=== PATIENT | female | born 1935 | race Caucasian/White ===

== ENCOUNTER → 2016-03-22 | Outpatient (CLI) | payer MEDICARE, BC ==
[~2016-03-22] MED LIST: ALLE60TA PO; AMOX500T PO; ASPI1TAB69 PO; ASPI81TA82 PO; CARD240C6 PO; COZA25TA PO; DILT31TA PO; EZET10 PO; EZET1TAB8 PO; FAMO1TAB37 PO; FLUT50SP EACH NARE; GABA300C3 PO; GABA300C5 PO; GLUC500C3 PO; LEVO75TA3 PO; LEVO75TA42 PO; MAGN400T PO; MELO1POW14; OYST500T77 PO; REST0.05 EACH EYE; TAB-TAB PO; VITA10002 PO; VITA400D PO; VITA500T10 PO
[2016-03-22 13:34] LABS: BASOPHIL # 0.1 TH/MM3 (0-0.2); BASOPHIL % 1.9 % (0.0-2.0); EOSINOPHIL # 0.3 TH/MM3 (0-0.4); EOSINOPHIL % 5.3 % (0.0-4.0); HEMATOCRIT 40.2 % (35.0-46.0); HEMO FLAGS DIFF FINAL; LYMPH % 25.1 % (9.0-44.0); LYMPHOCYTE # 1.3 TH/MM3 (1.0-4.8); MEAN CELL VOLUME 94.9 FL (80.0-100.0); MEAN CORPUSCULAR HEMOGLOBIN 32.8 PG (27.0-34.0); MEAN CORPUSCULAR HGB CONC 34.5 % (32.0-36.0); MONO % 10.5 % (0.0-8.0); NEUT % 57.2 % (16.0-70.0); PLATELET COUNT 205 TH/MM3 (150-450); RED BLOOD COUNT 4.23 MIL/MM3 (4.00-5.30); RED CELL DISTRIBUTION WIDTH 13.2 % (11.6-17.2); WHITE BLOOD COUNT 5.3 TH/MM3 (4.0-11.0)
[2016-03-22 14:05] LABS: ANION GAP 7 MEQ/L (5-15); AST (GOT) 14 U/L (15-37); BICARBONATE 25.8 MEQ/L (21.0-32.0); BLOOD UREA NITROGEN 17 MG/DL (7-18); CHLORIDE 109 MEQ/L (98-107); GLOMERULAR FILTRATION RATE 66 ML/MIN (>89); POTASSIUM 4.2 MEQ/L (3.5-5.1); SODIUM (NA) 142 MEQ/L (136-145)
[2016-03-22 14:24] LABS: ALKALINE PHOSPHATASE 82 U/L (45-117); ALT (GPT) 20 U/L (10-53); FREE T4 1.12 NG/DL (0.76-1.46); GLUCOSE,FASTING 105 MG/DL (74-99); HDL CHOLESTEROL 72.1 MG/DL (40.0-60.0); LDL CHOLESTEROL 103 MG/DL (0-99); TOTAL BILIRUBIN ADULT 0.5 MG/DL (0.2-1.0)
== END ==
LOC: PLAB 08:29
PROVIDERS: ATTEND Internal Medicine Interventional Cardiology
DX: I11.9 Hypertensive heart disease without heart failure (principal); E03.9 Hypothyroidism, unspecified; I10 Essential (primary) hypertension; E78.4 Other hyperlipidemia; R00.2 Palpitations; R07.89 Other chest pain; R00.0 Tachycardia, unspecified
CPT/HCPCS: 36415; 80053; 80061; 84439; 84443; 85025

== ENCOUNTER 2016-06-15 08:35 | Inpatient (IN) | payer MEDICARE, BC ==
[~2016-06-15] VITALS: Ht 165.1 cm; Wt 87.5 kg
[2016-06-15] VITALS (11 sets, daily range): BP systolic 141–173; BP diastolic 65–79; PULSE 40–80; RESP 18; TEMP 97–98.5; O2SAT 93–99
[~2016-06-15 08:35] MED LIST changes: -ALLE60TA PO; -ASPI1TAB69 PO; -COZA25TA PO; -DILT31TA PO; -EZET1TAB8 PO; -FAMO1TAB37 PO; -FLUT50SP EACH NARE; -GABA300C5 PO; -LEVO75TA3 PO; -MELO1POW14; -REST0.05 EACH EYE
[2016-06-15] MEDS ORDERED: SODIUM CHLORIDE 0.9% FLUSH 10 ML FLUSH IVF PRN (08:45)
[2016-06-15] MEDS ORDERED: DILT31TA PO (09:10)
[2016-06-15] MEDS ORDERED: EZET1TAB8 PO (09:10)
[2016-06-15] MEDS ORDERED: LEVO75TA3 PO (09:10)
[2016-06-15] MEDS ORDERED: REST0.05 EACH EYE (09:10)
--- NOTE | 2016-06-15 09:13 | RADRPT ---
EXAM DATE/TIME: 06/15/2016 09:10 [place] COMPARISON: CHEST SINGLE AP, June 21, 2013, 1:21. INDICATIONS : Irregular heart rate MEDICAL HISTORY : None. SURGICAL HISTORY : None. ENCOUNTER: Initial ACUITY: 1 day PAIN SCORE: 0/10 LOCATION: Bilateral chest FINDINGS: A single view of the chest demonstrates the lungs to be symmetrically aerated without evidence of mas s, infiltrate or effusion. A calcified granuloma is again noted in the left upper lobe. Mild atherosc lerotic calcifications are present in the aorta. The cardiomediastinal contours are unremarkable. Os seous structures are intact. CONCLUSION: No acute disease. Greg Law MD on June 15, 2016 at 9:10 Board Certified Radiologist. This report was verified electronically.
[2016-06-15 09:39] LABS: AUTOMATED NEUTROPHIL # 3.9 TH/MM3 (1.8-7.7); BASOPHIL # 0.1 TH/MM3 (0-0.2); EOSINOPHIL # 0.2 TH/MM3 (0-0.4); EOSINOPHIL % 3.1 % (0.0-4.0); HEMATOCRIT 39.1 % (35.0-46.0); HEMO FLAGS DIFF FINAL; LYMPH % 20.7 % (9.0-44.0); LYMPHOCYTE # 1.2 TH/MM3 (1.0-4.8); MONO % 8.9 % (0.0-8.0); NEUT % 65.3 % (16.0-70.0); PLATELET COUNT 187 TH/MM3 (150-450); RED BLOOD COUNT 4.16 MIL/MM3 (4.00-5.30); RED CELL DISTRIBUTION WIDTH 13.2 % (11.6-17.2)
[2016-06-15 09:49] LABS: APTT (PATIENT) 27.8 SEC (24.3-30.1); PROTHROMBIN TIME - PATIENT 10.5 SEC (9.8-11.6)
[2016-06-15 09:56] LABS: ANION GAP 10 MEQ/L (5-15); AST (GOT) 18 U/L (15-37); BICARBONATE 24.1 MEQ/L (21.0-32.0); BLOOD UREA NITROGEN 13 MG/DL (7-18); CHLORIDE 109 MEQ/L (98-107); GLOMERULAR FILTRATION RATE 60 ML/MIN (>89); POTASSIUM 3.7 MEQ/L (3.5-5.1); SODIUM (NA) 143 MEQ/L (136-145)
[2016-06-15 10:01] LABS: ALKALINE PHOSPHATASE 90 U/L (45-117); ALT (GPT) 20 U/L (10-53); CREATINE KINASE 65 U/L (26-192); TOTAL BILIRUBIN ADULT 0.4 MG/DL (0.2-1.0)
[2016-06-15] MEDS ORDERED: GABA300C5 PO (10:30)
[2016-06-15] MEDS ORDERED: MELO1POW14 (10:30)
--- NOTE | 2016-06-15 10:33 | PD ---
HPI Chief Complaint: Cardiac Complaint Time Seen by Provider: 09:00 Travel History International Travel<30 days: No Contact w/Intl Traveler<30days: No Traveled to known affect area: No History of Present Illness HPI Patient 81-year-old female who presents emergency Department with some chest discomfort as well as palpitations since this morning. Patient states she's been taking her medications as prescribed including Cardizem. She states on arrival her symptoms have subsided. She denies any chest pain just states it was a very funny feeling in the middle of my chest without radiation. Denies any shortness of breath or abdominal pain. EMS noted that her heart rate was bradycardic in the high 30s to low 40s range. Her blood pressures for. Patient has no further complaints this time. She did feel fatigued and dizzy this morning and felt like she was going to pass out. PFSH Past Medical History Hx Anticoagulant Therapy: Yes (ASPRIN ) Arthritis: Yes Blood Disorders: No Heart Rhythm Problems: Yes Cancer: No Cardiovascular Problems: Yes High Cholesterol: Yes Diminished Hearing: No Deep Vein Thrombosis: Yes (STOPPED XARELTO 06/10/14) Endocrine: Yes Gastrointestinal Disorders: Yes Genitourinary: No Headaches: Yes Hypertension: Yes Immune Disorder: No Implanted Vascular Access Dvce: Yes Kidney Stones: Yes Musculoskeletal: Yes Neurologic: Yes Psychiatric: No Reproductive: No Respiratory: No Thyroid Disease: Yes Ulcer: Yes Menopausal: Yes Past Surgical History Abdominal Surgery: Yes (KIERRA) Body Medical Devices: AUREA EYE LENS Cholecystectomy: Yes Eye Surgery: Yes (AUREA CATARACT SX) Other Surgery: Yes (HERINIA AND HIP REPLACEMENT, LEG ) Social History Alcohol Use: Yes (OCC) Tobacco Use: No Substance Use: No Allergies-Medications (Allergen,Severity, Reaction): Coded Allergies: Amoxicillin (Verified Adverse Reaction, Severe, Nausea/Vomiting, 06/15/16) . Celebrex (Verified Adverse Reaction, Severe, N&V, 06/15/16) . Cephalexin (Verified Adverse Reaction, Severe, N&V, 06/15/16) Colestid (Verified Adverse Reaction, Severe, N&V, 06/15/16) Flagyl (Verified Adverse Reaction, Severe, N&V, 06/15/16) Levaquin (Verified Adverse Reaction, Severe, N&V, 06/15/16) Lotrimin (Verified Adverse Reaction, Severe, N&V, 06/15/16) Nystatin (Verified Adverse Reaction, Severe, N&V, 06/15/16) Penicillin (Verified Adverse Reaction, Severe, Nausea/Vomiting, 06/15/16) Pravachol (Verified Adverse Reaction, Severe, N&V, 06/15/16) Tenoretic-100 (Verified Adverse Reaction, Severe, N&V, 06/15/16) Toprol Xl (Verified Adverse Reaction, Severe, N&V, 06/15/16) Vicodin (Verified Adverse Reaction, Severe, N&V, 06/15/16) Wellbutrin (Verified Adverse Reaction, Severe, N&V, 06/15/16) Uncoded Allergies: CEPHALEXIN (Allergy, Severe, DIAPHORETIC ;VERY WEAK LEGS; NAUSEA; DIARRHEA , 06/12/14) . STATINS (Allergy, Severe, MUSCLE PAIN, 06/12/14) . Reported Meds & Prescriptions Reported Meds & Active Scripts Active Reported Aspirin 81 Mg Tabdr 81 Mg PO DAILY Stacey Allergy (Fexofenadine HCl) Unknown Strength Tab Unknown Dose PO BID Pepcid (Famotidine) Unknown Strength Tab Unknown Dose PO BID Meloxicam (Meloxicam (Bulk)) 1 Pow Pow Gabapentin 300 Mg Cap 300 Mg PO TID Restasis Opth Drops (Cyclosporine Opth Drops) 0.05% Emul 1 Drop EACH EYE DAILY Cardizem (Diltiazem HCl) 30 Mg Tab 240 Mg PO DAILY Levothyroxine (Levothyroxine Sodium) 75 Mcg Tab 75 Mcg PO DAILY Ezetimibe 10 Mg Tab 10 Mg PO DAILY Review of Systems Except as stated in HPI: all other systems reviewed are Neg Physical Exam Narrative GENERAL: Well-developed well-nourished no apparent distress SKIN: Focused skin assessment warm/dry. HEAD: Atraumatic. Normocephalic. EYES: Pupils equal and round. No scleral icterus. No injection or drainage. ENT: No nasal bleeding or discharge. Mucous membranes pink and moist. NECK: Trachea midline. No JVD. CARDIOVASCULAR: Regular rhythm with bradycardia. No murmur appreciated. 2+ bilateral equal pulses in all 4 extremities, RESPIRATORY: No accessory muscle use. Clear to auscultation. Breath sounds equal bilaterally. GASTROINTESTINAL: Abdomen soft, non-tender, nondistended. Hepatic and splenic margins not palpable. MUSCULOSKELETAL: No obvious deformities. No clubbing. No cyanosis. No edema. NEUROLOGICAL: Awake and alert and oriented 3. No obvious cranial nerve deficits. Motor grossly within normal limits. Normal speech. PSYCHIATRIC: Appropriate mood and affect; insight and judgment normal. Data Data Last Documented VS Vital Signs Date Time Temp Pulse Resp B/P Pulse Ox O2 Delivery O2 Flow Rate FiO2 06/15/16 08:55 45 18 97 Room Air 06/15/16 08:52 141/65 06/15/16 08:46 2 06/15/16 08:40 98.0 Orders Electrocardiogram (06/15/16 08:43) Ckmb (Isoenzyme) Profile (06/15/16 08:43) Complete Blood Count With Diff (06/15/16 08:43) Comprehensive Metabolic Panel (06/15/16 08:43) Magnesium (Mg) (06/15/16 08:43) Prothrombin Time / Inr (Pt) (06/15/16 08:43) Act Partial Throm Time (Ptt) (06/15/16 08:43) Troponin I (06/15/16 08:43) Chest, Single Ap (06/15/16 08:43) Ecg Monitoring (06/15/16 08:43) Iv Access Insert/Monitor (06/15/16 08:43) Oximetry (06/15/16 08:43) Oxygen Administration (06/15/16 08:43) Sodium Chloride 0.9% Flush (Ns Flush) (06/15/16 08:45) Admit Order (Ed Use Only) (06/15/16 ) Labs Laboratory Tests Test 06/15/16 09:00 White Blood Count 6.0 TH/MM3 Red Blood Count 4.16 MIL/MM3 Hemoglobin 13.3 GM/DL Hematocrit 39.1 % Mean Corpuscular Volume 94.0 FL Mean Corpuscular Hemoglobin 32.0 PG Mean Corpuscular Hemoglobin 34.0 % Concent Red Cell Distribution Width 13.2 % Platelet Count 187 TH/MM3 Mean Platelet Volume 8.0 FL Neutrophils (%) (Auto) 65.3 % Lymphocytes (%) (Auto) 20.7 % Monocytes (%) (Auto) 8.9 % Eosinophils (%) (Auto) 3.1 % Basophils (%) (Auto) 2.0 % Neutrophils # (Auto) 3.9 TH/MM3 Lymphocytes # (Auto) 1.2 TH/MM3 Monocytes # (Auto) 0.5 TH/MM3 Eosinophils # (Auto) 0.2 TH/MM3 Basophils # (Auto) 0.1 TH/MM3 CBC Comment DIFF FINAL Differential Comment Prothrombin Time 10.5 SEC Prothromb Time International 1.0 RATIO Ratio Activated Partial 27.8 SEC Thromboplast Time Sodium Level 143 MEQ/L Potassium Level 3.7 MEQ/L Chloride Level 109 MEQ/L Carbon Dioxide Level 24.1 MEQ/L Anion Gap 10 MEQ/L Blood Urea Nitrogen 13 MG/DL Creatinine 0.90 MG/DL Estimat Glomerular Filtration 60 ML/MIN Rate Random Glucose 114 MG/DL Calcium Level 8.7 MG/DL Magnesium Level 2.0 MG/DL Total Bilirubin 0.4 MG/DL Aspartate Amino Transf 18 U/L (AST/SGOT) Alanine Aminotransferase 20 U/L (ALT/SGPT) Alkaline Phosphatase 90 U/L Total Creatine Kinase 65 U/L Troponin I LESS THAN 0.02 NG/ML Total Protein 7.3 GM/DL Albumin 3.5 GM/DL Free Thyroxine 1.19 NG/DL Thyroid Stimulating Hormone 2.190 uIU/ML 3rd [facility] Medical Decision Making Medical Screen Exam Complete: Yes Emergency Medical Condition: Yes Interpretation(s) EKG shows sinus bradycardia rate of 43 with a first-degree heart block with a NM interval of 255. There is prolonged QT as well with a QTC of 505. Right bundle branch block. No concerning ST-T changes. This an abnormal EKG. Differential Diagnosis Symptomatic bradycardia, syncope, ACS, AMI, anemia. Narrative Course Patient was roomed in the emergency department, initial workup was noted for an abnormal EKG for bradycardia. The machinist supervisor is been showing heart rates as low as 32. Patient has had normal blood pressures while in the emergency department. Discussed with her would recommend observation status for possible consultation with her plumber's assistant Dr. Vincent as well as cardiac monitoring. She is agreeable this time. Diagnosis Primary Impression: Symptomatic bradycardia Admitting Information Admitting Physician Requests: Observation Condition: Stable Hussein Metzger MD June 15, 2016 10:33
--- NOTE | 2016-06-15 10:51 | HHI.HP ---
[facility] Service Family Medicine Primary Care Physician Mandie Rosas MD Admission Diagnosis Diagnoses: International Travel<30 Days: No Contact w/Intl Traveler<30days: No Known Affected Area: No History of Present Illness Patient is a 81-year-old female with PMH significant for HTN, hypothyroidism. Presented today due to palpitations and dizziness. Patient reports that on 05/31 she had her first episode of feeling extremely lightheaded and extremely winded after walking up stairs at home which she normally does without issues. She was then asymptomatic until yesterday at which point she felt palpitations that was not associated with any pain. She took the rest of the day easily and lay down which did resolve her symptoms spontaneously. This morning at around 5 :30 AM, she stood up and felt very dizzy, nauseous, and had palpitations. No associated vomiting or SOB. Did have weakness. Her neighbor came over and then called the fire department which brought her to the ED. Per report from ED , she was found to have a pulse in the 30-40s. Because of the symptoms, she did take a full aspirin. By 7:45 AM, she started to progressively feel better and is now completely asymptomatic. She otherwise feels well and has no complaints. Of note she does have a computer operations supervisor, Dr. Mariscal. 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 HTN Seasonal allergies Past Surgical History Cholecystectomy Bilateral cataract ORIF of right femur Left hip replacement Hernia repair, right abdomen Reported Medications Reported Meds & Active Scripts Active Reported Meloxicam (Meloxicam (Bulk)) 1 Pow Pow Gabapentin 300 Mg Cap 300 Mg PO TID Restasis Opth Drops (Cyclosporine Opth Drops) 0.05% Emul 1 Drop EACH EYE DAILY Cardizem (Diltiazem HCl) 30 Mg Tab 240 Mg PO DAILY Levothyroxine (Levothyroxine Sodium) 75 Mcg Tab 75 Mcg PO DAILY Ezetimibe 10 Mg Tab 10 Mg PO DAILY Allergies: Coded Allergies: Amoxicillin (Verified Adverse Reaction, Severe, Nausea/Vomiting, 06/15/16) . Celebrex (Verified Adverse Reaction, Severe, N&V, 06/15/16) . Cephalexin (Verified Adverse Reaction, Severe, N&V, 06/15/16) Colestid (Verified Adverse Reaction, Severe, N&V, 06/15/16) Flagyl (Verified Adverse Reaction, Severe, N&V, 06/15/16) Levaquin (Verified Adverse Reaction, Severe, N&V, 06/15/16) Lotrimin (Verified Adverse Reaction, Severe, N&V, 06/15/16) Nystatin (Verified Adverse Reaction, Severe, N&V, 06/15/16) Penicillin (Verified Adverse Reaction, Severe, Nausea/Vomiting, 06/15/16) Pravachol (Verified Adverse Reaction, Severe, N&V, 06/15/16) Tenoretic-100 (Verified Adverse Reaction, Severe, N&V, 06/15/16) Toprol Xl (Verified Adverse Reaction, Severe, N&V, 06/15/16) Vicodin (Verified Adverse Reaction, Severe, N&V, 06/15/16) Wellbutrin (Verified Adverse Reaction, Severe, N&V, 06/15/16) Uncoded Allergies: CEPHALEXIN (Allergy, Severe, DIAPHORETIC ;VERY WEAK LEGS; NAUSEA; DIARRHEA , 06/12/14) . STATINS (Allergy, Severe, MUSCLE PAIN, 06/12/14) . Family History Both parents with heart conditions History of GI issues on multiple generations Social History Lives alone Tobacco: Denies Alcohol: Rarely Illicit: Denies Physical Exam Vital Signs Vital Signs Date Time Temp Pulse Resp B/P Pulse Ox O2 Delivery O2 Flow Rate FiO2 06/15/16 08:55 45 18 97 Room Air 06/15/16 08:52 50 18 141/65 99 Nasal Cannula 06/15/16 08:46 97 Nasal Cannula 2 06/15/16 08:40 98.0 80 18 173/76 97 Physical Exam GENERAL: This is a well-nourished, well-developed patient, in no apparent distress. Able to walk around the room without issues independently. SKIN: No rashes, ecchymoses or lesions. Cool and dry. EYES: Pupils equal round and reactive. Extraocular motions intact. No scleral icterus. No injection or drainage. ENT: Nose without bleeding, purulent drainage or septal hematoma. Throat without erythema, tonsillar hypertrophy or exudate. Uvula midline. Airway patent. NECK: Trachea midline. No lymphadenopathy. Supple, nontender, no meningeal signs. CARDIOVASCULAR: Slow rate but with normal rhythm. No murmurs, gallops, or rubs. RESPIRATORY: Clear to auscultation. Breath sounds equal bilaterally. No wheezes , rales, or rhonchi. GASTROINTESTINAL: Abdomen soft, non-tender, nondistended. No hepato-splenomegaly , or palpable masses. No guarding. MUSCULOSKELETAL: Extremities without clubbing, cyanosis, or edema. No calf tenderness. Brace over her left lower extremity. NEUROLOGICAL: Awake and alert.Motor and sensory grossly within normal limits. Normal speech. Laboratory Laboratory Tests Test 06/15/16 09:00 White Blood Count 6.0 Red Blood Count 4.16 Hemoglobin 13.3 Hematocrit 39.1 Mean Corpuscular Volume 94.0 Mean Corpuscular Hemoglobin 32.0 Mean Corpuscular Hemoglobin 34.0 Concent Red Cell Distribution Width 13.2 Platelet Count 187 Mean Platelet Volume 8.0 Neutrophils (%) (Auto) 65.3 Lymphocytes (%) (Auto) 20.7 Monocytes (%) (Auto) 8.9 Eosinophils (%) (Auto) 3.1 Basophils (%) (Auto) 2.0 Neutrophils # (Auto) 3.9 Lymphocytes # (Auto) 1.2 Monocytes # (Auto) 0.5 Eosinophils # (Auto) 0.2 Basophils # (Auto) 0.1 CBC Comment DIFF FINAL Differential Comment Prothrombin Time 10.5 Prothromb Time International 1.0 Ratio Activated Partial 27.8 Thromboplast Time Sodium Level 143 Potassium Level 3.7 Chloride Level 109 Carbon Dioxide Level 24.1 Anion Gap 10 Blood Urea Nitrogen 13 Creatinine 0.90 Estimat Glomerular Filtration 60 Rate Random Glucose 114 Calcium Level 8.7 Magnesium Level 2.0 Total Bilirubin 0.4 Aspartate Amino Transf 18 (AST/SGOT) Alanine Aminotransferase 20 (ALT/SGPT) Alkaline Phosphatase 90 Total Creatine Kinase 65 Troponin I LESS THAN 0.02 Total Protein 7.3 Albumin 3.5 Result Diagram: 06/15/1689906/15/16899 Assessment and Plan Assessment and Plan 81-year-old female PMH negative for hypothyroidism, HTN. Admitted for symptomatic bradycardia. Code Status Full Problem List: (1) Symptomatic bradycardia Status: Acute Plan: New onset symptomatic bradycardia that is associated with lightheadedness , nausea, palpitations, fatigue. EKG stable from prior EKG in 2011 which also showed a right bundle branch block and a prolonged QT. She also continues to have a first degree AV block. Etiology includes NM vs uncontrolled hypothyroidism vs electrolyte disturbance. -Admit to [facility] for close monitoring of pulse as she may require pacing if her symptoms worsen. * Cardiac telemetry * Neuro checks -ACS evaluation, initial troponin unremarkable * EKG significant for stable RBBB and first degree AV block. QTC has prolonged -TSH, and free T4 ordered -CBC, CMP unremarkable Cardiology consulted: Appreciate recommendations Medications: * Hold home Cardizem * Aspirin 81 mg daily * Will avoid QT prolonging medications (2) Hypothyroidism Status: Acute Plan: May be a cause of bradycardia. 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 In the case of services not specified as inpatient-only, they are appropriately provided as inpatient services in accordance with the 2-midnight benchmark. Estimated LOS (days): 2 days is the estimated time the patient will need to remain in the hospital, assuming treatment plan goals are met and no additional complications. Post-Hospital Plan: Home Marissa Riggs MD R2 June 15, 2016 10:51
[2016-06-15] MEDS ORDERED: DOCUSATE SODIUM 100 MG CAP PO SCH (11:00)
[2016-06-15] MEDS ORDERED: ONDANSETRON HCL 4 MG/2 ML VIAL IVP PRN (11:00)
[2016-06-15] MEDS ORDERED: SODIUM CHLORIDE 0.9% FLUSH 10 ML FLUSH IV FLUSH PRN (11:00)
[2016-06-15] MEDS ORDERED: NALOXONE HCL 0.4 MG/ML AMP IV PRN (11:00)
[2016-06-15] MEDS ORDERED: ENALAPRILAT 1.25 MG/ML VIAL IV PRN (11:45)
[2016-06-15] MEDS ORDERED: ACETAMINOPHEN 325 MG TAB PO PRN (11:45)
[2016-06-15] MEDS ORDERED: ALLE60TA PO (11:49)
[2016-06-15] MEDS ORDERED: FAMO1TAB37 PO (11:49)
[2016-06-15] MEDS ORDERED: ASPI1TAB69 PO (11:49)
[2016-06-15 12:36] LABS: FREE T4 1.19 NG/DL (0.76-1.46)
--- NOTE | 2016-06-15 14:33 | MB ---
cc: NICOLASA JI M.D. DATE OF CONSULTATION: 06/15/2016. REASON FOR CONSULTATION: Lightheadedness and bradycardia. HISTORY OF PRESENT ILLNESS: Ms. Prince is an 81-year-old white female well-known to me with history of palpitations, inappropriate sinus tachycardia, hypercholesterolemia, and hypertensive heart disease. The patient was doing well when I last saw her on March 20, 2016 in an outpatient office visit. She has been on stable medications since that time. She has been taking her medications as directed. She says about mid last week she had a few days of feeling lightheadedness and short of breath walking up stairs. She was doing better until this morning when she said she stood up and felt lightheaded and became nauseous. She did not faint but a neighbor called [facility] and she came to the emergency room. Initially here she was found to have a marked sinus bradycardia in the 30s and 40s. Her blood pressure was adequate. Since then she is feeling better and is asymptomatic. She denies any chest pains, any previous episodes of lightheadedness or syncope. She denies any changes in her medications recently. She has otherwise been doing well. PAST MEDICAL HISTORY: 1. Longstanding hypertension. 2. Hypothyroidism. 3. Gastroesophageal reflux disease (GERD). 4. Osteoarthritis. 5. 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 6. Hypertension. 7. Inappropriate sinus tachycardia. 8. Hypercholesterolemia with intolerance to statin drugs. 9. Right lower extremity DVT following her hip fracture currently off anticoagulation therapy. 10. Obesity. Denies history of myocardial infarction, stroke, TIA, heart failure, heart murmur, liver or kidney disease. ALLERGIES: MULTIPLE MEDICATION INTOLERANCES INCLUDING: GASTROINTESTINAL UPSET AND NAUSEA AND VOMITING FROM CEPHALEXIN, PENICILLIN, AMOXICILLIN, FLAGYL, VICODIN, TENORETIC, LEVAQUIN, STATINS, PRAVACHOL, CELEBREX, COLESTID. LOTRIMIN, NYSTATIN, ZEASORB, WELLBUTRIN. CURRENT MEDICATIONS PRIOR TO ADMISSION: 1. Cardizem CD 240 milligrams daily. 2. Zetia 10 milligrams daily. 3. Aspirin 81 milligrams daily. 4. Levothyroxine 0.075 milligrams daily. 5. Gabapentin 300 milligrams daily. 6. Vitamin C supplement. 7. Vitamin B12 supplements. 8. Multivitamin supplement. 9. Calcium supplement. 10. Vitamin D supplement. 11. Magnesium. 12. Bumex 1 milligram daily. 13. Restasis daily. 14. Staecy PRN. PAST SURGICAL HISTORY: 1. Cholecystectomy. 2. Bilateral cataracts. 3. Open reduction internal fixation of the right femur. 4. Left hip replacement. 5. Hernia repair right abdomen. FAMILY HISTORY: Family history is not contributory. SOCIAL HISTORY: The patient lives alone, is , denies tobacco, rare alcohol intake. No illicit drug use. REVIEW OF SYSTEMS: Mild lower extremity edema at times. Denies claudication. Denies exertional or resting chest discomfort. Denies fevers, chills, night sweats. Denies syncope. Except for that mentioned in the history of present illness, her complete 12-point review of systems otherwise negative. PHYSICAL EXAMINATION: GENERAL: An elderly obese white female lying in bed in no distress. VITAL SIGNS: Blood pressure 142/65 mmHg, heart rate is 50 and regular, respiratory rate 18, temperature 98.3, oxygen saturation 97% on 2 liters nasal cannula. HEAD, EYES, EARS, NOSE, THROAT: Head is normocephalic and atraumatic. Pupils equal and reactive to light. Sclerae anicteric. Extraocular moments intact. NECK: Neck is supple. There is no adenopathy. No jugular venous tension at 90 degrees. Carotid upstrokes normal. No bruits. Thyroid exam normal. LUNGS: Clear. HEART: PMI not displaced. S1 and S2 normal. No murmurs, gallops, clicks or rubs. ABDOMEN: Obese. Bowel sounds present, soft, nontender. No hepatosplenomegaly, masses or bruits. EXTREMITIES: No cyanosis, clubbing or edema. Perfusion is adequate in the upper and lower extremities. There are no femoral bruits. NEUROLOGIC: Exam is grossly intact. EKGS: EKG from the emergency room today shows a sinus bradycardia, first-degree AV block, right bundle branch block, mildly prolonged Q-T interval around 500 milliseconds. Chest x-ray: No acute disease. LABORATORY DATA: CBC is normal. Electrolytes: Sodium 143, potassium 3.7, chloride 109, CO2 24.1, BUN 13, creatinine 0.9, calcium 8.7, glucose 114, AST 18. Troponin I less than 0.02. TSH is pending. An echocardiogram from my office January 16, 2015 showing concentric left ventricular hypertrophy. Left ventricular ejection fraction 56%. Trace to mild aortic insufficiency with trace mitral regurgitation / tricuspid regurgitation / PI. A pharmacologic stress - MPI December 15, 2012 was a normal study with left ventricular ejection fraction of 73%. IMPRESSION: 1. Possible symptomatic bradycardia. 2. History of inappropriate sinus tachycardia. 3. Hypertensive heart disease. 4. Hypercholesterolemia with intolerance to statins. 5. History of palpitations. 6. Obesity. RECOMMENDATIONS: 1. The patient is feeling better already. Her last dose of diltiazem was yesterday morning. Will continue to withhold that and see how she does observed on telemetry. 2. Repeat cardiac enzymes and EKGs today. 3. If her bradycardia and symptoms resolve with activity by tomorrow morning, she can probably be discharged to home safely, perhaps on a lower dose of Cardizem or another medication if necessary. I will follow up with her in the morning. I have discussed the plans in detail with the patient. Thank you for allowing me to participate in the care of this patient. MD HANH Mora/LATASHA /12:19 PM /2:11 PM
[2016-06-15] MEDS ORDERED: SODIUM CHLORIDE 0.9% FLUSH 10 ML FLUSH IV FLUSH SCH (21:00)
[2016-06-15] MEDS: GABAPENTIN 300 MG CAP PO SCH (21:11)
--- NOTE | 2016-06-15 21:48 | EKG ---
Date Performed: 06/15/2016 Time Performed: 15:54:10 PTAGE: 81 years EKG: Sinus rhythm with 1st degree A-V block. Right bundle branch block Possible inferior infarct - age undetermined Lo w QRS voltages in precordial leads Abnormal ECG PREVIOUS TRACING : 06/15/2016 08.47 DOCTOR: Trav Leiva Interpretating Date/Time 06/15/2016 21:45:40
--- NOTE | 2016-06-15 22:00 | EKG ---
Date Performed: 06/15/2016 Time Performed: 08:47:22 PTAGE: 81 years EKG: SINUS BRADYCARDIA WITH FIRST DEGREE AV BLOCK RIGHT BUNDLE BRANCH BLOCK ABNORMAL ECG INTERPR ETATION BASED ON A DEFAULT AGE OF 40 YEARS PREVIOUS TRACING : 06/21/2013 03.05 DOCTOR: Trav Leiva Interpretating Date/Time 06/15/2016 21:52:44
[2016-06-15] MEDS ORDERED: DOCUSATE SODIUM 100 MG CAP PO PRN (23:00)
[2016-06-16 03:00] VITALS: BP 155/95; PULSE 80; PULSE 88; RESP 18; TEMP 98.3; O2SAT 95
[2016-06-16] MEDS ORDERED: LEVOTHYROXINE SODIUM 75 MCG TAB PO SCH (06:00)
[2016-06-16 06:22] LABS: BICARBONATE 23.9 MEQ/L (21.0-32.0); POTASSIUM 3.7 MEQ/L (3.5-5.1)
[2016-06-16 07:00] VITALS: BP 168/105; PULSE 95; RESP 18; TEMP 98.1; O2SAT 95
[2016-06-16 07:26] VITALS: O2SAT 96
--- NOTE | 2016-06-16 08:33 | PD.CARD.PN ---
Subjective Subjective Remarks Feeling better. HR improved in 90's this AM. Objective Medications Current Medications Medications (Trade) Dose Ordered Sig/Tammy Route PRN Reason Start Time Stop Time Status Last Admin Dose Admin Sodium Chloride (NS Flush) 2 ml UNSCH PRN IVF FLUSH AFTER USING IV ACCESS 06/15/16 08:45 Sodium Chloride (NS Flush) 2 ml UNSCH PRN IV FLUSH FLUSH AFTER USING IV ACCESS 06/15/16 11:00 Sodium Chloride (NS Flush) 2 ml BID IV FLUSH 06/15/16 21:00 06/15/16 21:12 Naloxone HCl (Narcan Inj) 0.4 mg UNSCH PRN IV SEE LABEL COMMENTS 06/15/16 11:00 Gabapentin (Neurontin) 300 mg BID PO 06/15/16 21:00 06/15/16 21:11 Levothyroxine Sodium (Synthroid) 75 mcg DAILY@0600 PO 06/16/16 06:00 06/16/16 05:30 EZETIMIBE (Zetia) 10 mg DAILY PO 06/16/16 09:00 Docusate Sodium (Colace) 100 mg Q12H PRN PO CONSTIPATION 06/15/16 23:00 Enalaprilat (Vasotec Inj) 1.25 mg Q6H PRN IV SBP> OR = 180, DBP> OR = 100 06/15/16 11:45 Acetaminophen (Tylenol) 650 mg Q6H PRN PO PAIN SCALE 1 TO 10/Headache 06/15/16 11:45 Fluticasone Propionate (Flonase Miguel Spr) 2 spray DAILY EACH NARE 06/16/16 09:00 Aspirin (Ecotrin Ec) 81 mg DAILY PO 06/16/16 09:00 Losartan Potassium (Cozaar) 25 mg DAILY PO 06/16/16 09:00 Loratadine (Claritin) 5 mg ONCE ONCE PO 06/16/16 08:30 06/16/16 08:31 UNV Vital Signs / I&O Vital Signs Date Time Temp Pulse Resp B/P Pulse Ox O2 Delivery O2 Flow Rate FiO2 06/16/16 07:26 96 21 06/16/16 03:00 98.3 80 18 155/95 95 06/16/16 03:00 88 06/15/16 23:00 80 06/15/16 23:00 97.1 58 18 142/78 95 06/15/16 21:15 93 06/15/16 19:00 97.0 46 18 146/74 96 06/15/16 19:00 66 06/15/16 18:00 45 06/15/16 17:00 59 06/15/16 16:00 69 06/15/16 15:00 98.2 40 18 146/78 95 06/15/16 13:16 45 06/15/16 13:16 98.5 45 18 144/79 94 06/15/16 11:15 98.3 47 18 142/65 97 Nasal Cannula 2 06/15/16 08:55 45 18 97 Room Air 06/15/16 08:52 50 18 141/65 99 Nasal Cannula 06/15/16 08:46 97 Nasal Cannula 2 06/15/16 08:40 98.0 80 18 173/76 97 I/O 06/15/16 06/15/16 06/15/16 06/16/16 06/16/16 06/16/16 07:00 15:00 23:00 07:00 15:00 23:00 Intake Total 720 ml 480 ml Output Total 700 ml 1300 ml Balance 20 ml -820 ml Intake Oral 720 ml 480 ml IV Total 0 ml Output Urine Total 700 ml 1300 ml # Bowel Movements 0 0 Physical Exam VSS, afeb No JVD Lungs CTA Heart RRR Ext: no edema, warm, well perfused. Neuro: Intact Laboratory Laboratory Tests Test 06/15/16 06/15/16 06/15/16 06/15/16 09:00 12:16 16:17 19:24 White Blood Count 6.0 TH/MM3 Red Blood Count 4.16 MIL/MM3 Hemoglobin 13.3 GM/DL Hematocrit 39.1 % Mean Corpuscular Volume 94.0 FL Mean Corpuscular Hemoglobin 32.0 PG Mean Corpuscular Hemoglobin 34.0 % Concent Red Cell Distribution Width 13.2 % Platelet Count 187 TH/MM3 Mean Platelet Volume 8.0 FL Neutrophils (%) (Auto) 65.3 % Lymphocytes (%) (Auto) 20.7 % Monocytes (%) (Auto) 8.9 % Eosinophils (%) (Auto) 3.1 % Basophils (%) (Auto) 2.0 % Neutrophils # (Auto) 3.9 TH/MM3 Lymphocytes # (Auto) 1.2 TH/MM3 Monocytes # (Auto) 0.5 TH/MM3 Eosinophils # (Auto) 0.2 TH/MM3 Basophils # (Auto) 0.1 TH/MM3 CBC Comment DIFF FINAL Differential Comment Prothrombin Time 10.5 SEC Prothromb Time International 1.0 RATIO Ratio Activated Partial 27.8 SEC Thromboplast Time Sodium Level 143 MEQ/L Potassium Level 3.7 MEQ/L Chloride Level 109 MEQ/L Carbon Dioxide Level 24.1 MEQ/L Anion Gap 10 MEQ/L Blood Urea Nitrogen 13 MG/DL Creatinine 0.90 MG/DL Estimat Glomerular Filtration 60 ML/MIN Rate Random Glucose 114 MG/DL Calcium Level 8.7 MG/DL Magnesium Level 2.0 MG/DL Total Bilirubin 0.4 MG/DL Aspartate Amino Transf 18 U/L (AST/SGOT) Alanine Aminotransferase 20 U/L (ALT/SGPT) Alkaline Phosphatase 90 U/L Total Creatine Kinase 65 U/L Troponin I LESS THAN 0.02 LESS THAN 0.02 LESS THAN 0.02 LESS THAN 0.02 NG/ML NG/ML NG/ML NG/ML Total Protein 7.3 GM/DL Albumin 3.5 GM/DL Free Thyroxine 1.19 NG/DL Thyroid Stimulating Hormone 2.190 uIU/ML 3rd Gen Test 06/16/16 05:26 Sodium Level 143 MEQ/L Potassium Level 3.7 MEQ/L Chloride Level 111 MEQ/L Carbon Dioxide Level 23.9 MEQ/L Anion Gap 8 MEQ/L Blood Urea Nitrogen 10 MG/DL Creatinine 0.73 MG/DL Estimat Glomerular Filtration 76 ML/MIN Rate Random Glucose 103 MG/DL Calcium Level 8.5 MG/DL Imaging Last 48 hours Impressions Chest X-Ray 06/15/16 0843 Signed Impressions: Service Date/Time: Wednesday, June 15, 2016 09:10 - CONCLUSION: No acute disease. Greg Law MD Assessment and Plan Problem List: (1) Symptomatic bradycardia (2) Hypertension Assessment and Plan Bradycardia resolved. Considered that patient may have take additional dose of Cardizem by accident but she doesn't believe so. Will leave her off Cardizem for now. Start Losartan 25 mg daily for BP control. CV stable for D/C home today. Instructions given and F/U arranged. in 1-2 weeks. Code Status Full Discussed Condition With Patient and staff forester. Kelton Aquino MD June 16, 2016 08:33
[2016-06-16] MEDS ORDERED: PILL SPLITTER OTHER PRN (08:45)
[2016-06-16] MEDS ORDERED: LOSARTAN 25 MG TAB PO SCH (09:00)
[2016-06-16] MEDS ORDERED: ASPIRIN EC 81 MG TABEC PO SCH (09:00)
[2016-06-16] MEDS ORDERED: EZETIMIBE 10 MG TAB PO SCH (09:00)
[2016-06-16] MEDS ORDERED: FLUTICASONE PROPIONATE 50 MCG/ACT 16 GM NASAL SPRAY EACH NARE SCH (09:00)
[2016-06-16] MEDS: GABAPENTIN 300 MG CAP PO SCH (09:05)
--- NOTE | 2016-06-16 09:48 | HHI.FPPN ---
Subjective Remarks This morning patient states that she feels well and is ready to go. Has no complaints at this time. Reports cardiology has already seen her. (Marissa Diaz MD R2) Objective Vitals Vital Signs Date Time Temp Pulse Resp B/P Pulse Ox O2 Delivery O2 Flow Rate FiO2 06/16/16 07:26 96 21 06/16/16 03:00 98.3 80 18 155/95 95 06/16/16 03:00 88 06/15/16 23:00 80 06/15/16 23:00 97.1 58 18 142/78 95 06/15/16 21:15 93 06/15/16 19:00 97.0 46 18 146/74 96 06/15/16 19:00 66 06/15/16 18:00 45 06/15/16 17:00 59 06/15/16 16:00 69 06/15/16 15:00 98.2 40 18 146/78 95 06/15/16 13:16 45 06/15/16 13:16 98.5 45 18 144/79 94 06/15/16 11:15 98.3 47 18 142/65 97 Nasal Cannula 2 I/O 06/15/16 06/15/16 06/15/16 06/16/16 06/16/16 06/16/16 07:00 15:00 23:00 07:00 15:00 23:00 Intake Total 720 ml 480 ml Output Total 700 ml 1300 ml Balance 20 ml -820 ml Intake Oral 720 ml 480 ml IV Total 0 ml Output Urine Total 700 ml 1300 ml # Bowel Movements 0 0 (Marissa Riggs MD R2) Result Diagram: 06/15/16 0900 06/16/16 0526 Objective Remarks GEN: Well-developed, well-nourished patient. No acute distress. CV: Regular rate and rhythm without obvious murmurs LUNGS: Clear to auscultation bilaterally. Normal respiratory effort. No wheezes , rales, rhonchi. NEURO/PSYCH: Awake, alert. Appropriate insight and judgment. Normal speech ( Marissa Riggs MD R2) A/P Assessment and Plan 81-year-old female PMH negative for hypothyroidism, HTN. Admitted for symptomatic bradycardia. Discharge Planning Today as cleared by cardiology (Marissa Riggs MD R2) Attending Attestation Patient seen and examined. Case reviewed and discussed with the resident team. Agree with plan of care as discussed with me and documented in the resident note. (Cristiano Pantoja MD) Problem List: (1) Symptomatic bradycardia Status: Resolved Plan: New onset symptomatic bradycardia that is associated with lightheadedness , nausea, palpitations, fatigue. EKG stable from prior EKG in 2012 which also showed a right bundle branch block and a prolonged QT. She also continues to have a first degree AV block. Etiology likely due to medication -ACS negative -TSH, and free unremarkable Cardiology consulted: Appreciate recommendations * Discontinue Cardizem * Start losartan 25 mg daily for BP control * Okay to discharge with follow-up Medications: * Losartan 25 mg * Aspirin 81 mg daily * Will avoid QT prolonging medications (2) Hypothyroidism Status: Chronic Plan: See plan above -Continue home levothyroxine 75 g (3) Nutrition, metabolism, and development symptoms Status: Acute Plan: Diet: Regular Fluids: None Electrolytes: Unremarkable DVT prophylaxis: SCDs, chemical prophylaxis on hold in case patient will require a procedure GI prophylaxis: None indicated, Pepcid as needed for reflux symptoms Chronic conditions: * 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
[2016-06-16] MEDS ORDERED: LORATADINE 10 MG TAB PO ONE (10:00)
[2016-06-16] MEDS ORDERED: COZA25TA PO (10:14)
--- NOTE | 2016-06-16 10:15 | HHI.DCPOC ---
Discharge Care Plan Diagnosis: (1) Symptomatic bradycardia (2) Hypertension Goals to Promote Your Health * To prevent worsening of your condition and complications * To maintain your health at the optimal level Directions to Meet Your Goals Take your medications as prescribed Follow your dietary instruction Follow activity as directed Keep your appointments as scheduled Take your immunizations and boosters as scheduled If your symptoms worsen call your PCP, if no PCP go to Urgent Care Center or Emergency Room Smoking is Dangerous to Your Health. Avoid second hand smoke Call the 24-hour hour crisis hotline for domestic abuse at Marissa Riggs MD R2 June 16, 2016 10:15
[2016-06-16] MEDS ORDERED: FLUT50SP EACH NARE (10:20)
--- NOTE | 2016-06-16 10:35 | EKG ---
Date Performed: 06/16/2016 Time Performed: 05:04:48 PTAGE: 81 years EKG: Sinus rhythm with 1st degree A-V block. Right bundle branch block Possible inferior infarct - age undetermined [place] T wave changes may be due to myocardial ischemia Low QRS voltages in precordial leads Abnormal ECG PREVIOUS TRACING : 06/15/2016 15.54 DOCTOR: Trav Leiva Interpretating Date/Time 06/16/2016 10:34:11
[2016-06-16 11:00] VITALS: BP 149/97; PULSE 86; RESP 18; TEMP 98.6; O2SAT 93
== END 2016-06-16 12:37 | disposition home or self-care (01) | DRG 310 ==
LOC: NEPE 08:35 → NEDA 10:49 → OBSVTOIN 11:05 → HCVR 13:32
PROVIDERS: ADMIT Family Medicine; ATTEND Family Medicine
DX: R00.1 Bradycardia, unspecified (principal); G62.9 Polyneuropathy, unspecified; I11.9 Hypertensive heart disease without heart failure; I44.0 Atrioventricular block, first degree; I45.10 Unspecified right bundle-branch block; K21.9 Gastro-esophageal reflux disease without esophagitis; E03.9 Hypothyroidism, unspecified; E78.5 Hyperlipidemia, unspecified; E78.00 Pure hypercholesterolemia, unspecified; M21.372 Foot drop, left foot; M19.90 Unspecified osteoarthritis, unspecified site; Z86.718 Personal history of other venous thrombosis and embolism; Z88.0 Allergy status to penicillin; Z88.1 Allergy status to other antibiotic agents; Z88.5 Allergy status to narcotic agent; Z96.642 Presence of left artificial hip joint; E66.9 Obesity, unspecified; Z68.32 Body mass index [BMI] 32.0-32.9, adult
CPT/HCPCS: 71010; 80048; 80053; 82550; 83735; 84439; 84443; 84484; 85025; 85610; 85730; 93005

== ENCOUNTER → 2016-09-09 | Outpatient (CLI) | payer MEDICARE, BC ==
[~2016-09-09] MED LIST changes: +ALLE60TA PO; -AMOX500T PO; +ASPI1TAB69 PO; -ASPI81TA82 PO; -CARD240C6 PO; +COZA25TA PO; -EZET10 PO; +EZET1TAB8 PO; +FAMO1TAB37 PO; +FLUT50SP EACH NARE; -GABA300C3 PO; +GABA300C5 PO; -GLUC500C3 PO; +LEVO75TA3 PO; -LEVO75TA42 PO; -MAGN400T PO; +MELO1POW14; -OYST500T77 PO; +REST0.05 EACH EYE; -TAB-TAB PO; -VITA10002 PO; -VITA400D PO; -VITA500T10 PO
[2016-09-09 09:43] LABS: MEAN CELL VOLUME 95.9 FL (80.0-100.0); MEAN CORPUSCULAR HEMOGLOBIN 31.8 PG (27.0-34.0); MEAN CORPUSCULAR HGB CONC 33.2 % (32.0-36.0); PLATELET COUNT 208 TH/MM3 (150-450); RED BLOOD COUNT 4.49 MIL/MM3 (4.00-5.30); RED CELL DISTRIBUTION WIDTH 13.5 % (11.6-17.2); REVIEW FLAG FINAL
[2016-09-09 10:06] LABS: ANION GAP 11 MEQ/L (5-15); AST (GOT) 19 U/L (15-37); BICARBONATE 25.6 MEQ/L (21.0-32.0); BLOOD UREA NITROGEN 23 MG/DL (7-18); CHLORIDE 108 MEQ/L (98-107); GLOMERULAR FILTRATION RATE 53 ML/MIN (>89); GLUCOSE,FASTING 100 MG/DL (74-99); POTASSIUM 4.2 MEQ/L (3.5-5.1); SODIUM (NA) 145 MEQ/L (136-145)
[2016-09-09 10:07] LABS: ALT (GPT) 19 U/L (10-53)
[2016-09-09 10:15] LABS: ALKALINE PHOSPHATASE 84 U/L (45-117); FREE T4 1.17 NG/DL (0.76-1.46); HDL CHOLESTEROL 66.6 MG/DL (40.0-60.0); LDL CHOLESTEROL 107 MG/DL (0-99); TOTAL BILIRUBIN ADULT 0.6 MG/DL (0.2-1.0)
[2016-09-09 17:22] LABS: HEMOGLOBIN A1a 1.2 %; HEMOGLOBIN A1b 0.9 %; HEMOGLOBIN Ao 85.2 %; HEMOGLOBIN F 1.1 %; HEMOGLOBIN LA1C 1.9 %; HEMOGLOBIN P3 3.6 %
== END ==
LOC: PLAB 08:02
PROVIDERS: ATTEND Family Medicine
DX: E78.5 Hyperlipidemia, unspecified (principal); R73.01 Impaired fasting glucose; E03.9 Hypothyroidism, unspecified
CPT/HCPCS: 36415; 80053; 80061; 83036; 84439; 84443; 85027

== ENCOUNTER 2016-11-29 09:32 | Inpatient (IN) | payer MEDICARE, BC ==
[2016-11-29] VITALS (18 sets, daily range): BP systolic 94–146; BP diastolic 46–71; PULSE 23–94; RESP 15–19; TEMP 97.6–98.4; O2SAT 94–100
[~2016-11-29] VITALS: Ht 165.1 cm; Wt 89.5 kg
[2016-11-29] MEDS ORDERED: ASPI81CH CHEW (09:49)
--- NOTE | 2016-11-29 10:02 | PD ---
HPI Chief Complaint: Cardiac Complaint Time Seen by Provider: 09:41 Travel History International Travel<30 days: No Contact w/Intl Traveler<30days: No Traveled to known affect area: No History of Present Illness HPI 81-year-old female complains of bradycardia. Patient has history of bradycardia in the past however has been doing well. 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 Patient noticed her pulse was slow since yesterday. Patient checked her pulse this morning and was in the 30s. EMS was called. Blood pressure at the scene was in the 80s. Patient was given atropine 0.5 mg IV and transported to ED for evaluation. Patient denies any headache. Patient denies any dizziness. Patient denies any chest pain or shortness of breath. Patient denies abdominal pain. Patient denies any focal weakness or numbness of extremity. Patient has history of hypertension and hyperlipidemia. Patient also has history hypothyroidism and has been taking levothyroxine. PFSH Past Medical History Hx Anticoagulant Therapy: Yes (ASPRIN ) Arthritis: Yes Autoimmune Disease: No Blood Disorders: No Heart Rhythm Problems: Yes Cancer: Yes Cardiovascular Problems: Yes High Cholesterol: Yes Diabetes: No Diminished Hearing: No Deep Vein Thrombosis: Yes (STOPPED XARELTO 06/10/14) Endocrine: Yes Gastrointestinal Disorders: Yes Genitourinary: Yes Headaches: Yes Hypertension: Yes Immune Disorder: No Implanted Vascular Access Dvce: Yes Kidney Stones: Yes Musculoskeletal: Yes Neurologic: No Psychiatric: No Reproductive: No Respiratory: No Thyroid Disease: Yes (hypothyroidism) Ulcer: Yes Menopausal: Yes Past Surgical History Body Medical Devices: plates and screws right leg Cholecystectomy: Yes Eye Surgery: Yes (cataract surgeries) Other Surgery: Yes (HERINIA AND HIP REPLACEMENT, LEG ) Social History Alcohol Use: Yes (OCC) Tobacco Use: No Substance Use: No Allergies-Medications (Allergen,Severity, Reaction): Coded Allergies: acetaminophen (Unverified Adverse Reaction, Severe, N&V, 11/29/16) amoxicillin (Unverified Adverse Reaction, Severe, Nausea/Vomiting, ) . atenolol (Unverified Adverse Reaction, Severe, N&V, 11/29/16) bupropion (Unverified Adverse Reaction, Severe, N&V, 11/29/16) celecoxib (Unverified Adverse Reaction, Severe, N&V, 11/29/16) . cephalexin (Unverified Adverse Reaction, Severe, N&V, 11/29/16) chlorthalidone (Unverified Adverse Reaction, Severe, N&V, 11/29/16) clotrimazole (Unverified Adverse Reaction, Severe, N&V, 11/29/16) colestipol (Unverified Adverse Reaction, Severe, N&V, 11/29/16) hydrocodone (Unverified Adverse Reaction, Severe, N&V, 11/29/16) levofloxacin (Unverified Adverse Reaction, Severe, N&V, 11/29/16) metoprolol (Unverified Adverse Reaction, Severe, N&V, 11/29/16) metronidazole (Unverified Adverse Reaction, Severe, N&V, 11/29/16) nystatin (Unverified Adverse Reaction, Severe, N&V, 11/29/16) penicillin G (Unverified Adverse Reaction, Severe, Nausea/Vomiting, ) pravastatin (Unverified Adverse Reaction, Severe, N&V, 11/29/16) Uncoded Allergies: CEPHALEXIN (Allergy, Severe, DIAPHORETIC ;VERY WEAK LEGS; NAUSEA; DIARRHEA , 06/12/14) . STATINS (Allergy, Severe, MUSCLE PAIN, 06/12/14) . Reported Meds & Prescriptions Reported Meds & Active Scripts Active Fluticasone Nasal [place] 50 Mcg/Act Naspr 2 [place] EACH NARE DAILY Cozaar (Losartan Potassium) 25 Mg Tab 25 Mg PO DAILY Reported Aspirin 81 Mg Chew 81 Mg CHEW DAILY Stacey Allergy (Fexofenadine HCl) Unknown Strength Tab Unknown Dose PO BID Pepcid (Famotidine) Unknown Strength Tab Unknown Dose PO BID Meloxicam (Meloxicam (Bulk)) 1 Pow Pow Gabapentin 300 Mg Cap 300 Mg PO TID Restasis Opth 0.05% (Cyclosporine Opth 0.05%) 0.05% Emul 1 Drop EACH EYE DAILY Levothyroxine (Levothyroxine Sodium) 75 Mcg Tab 75 Mcg PO DAILY Ezetimibe 10 Mg Tab 10 Mg PO DAILY Review of Systems General / Constitutional: No: Fever Eyes: No: Visual changes HENT: No: Headaches Cardiovascular: No: Chest Pain or Discomfort Respiratory: No: Shortness of Breath Gastrointestinal: No: Abdominal Pain Genitourinary: No: Dysuria Musculoskeletal: No: Pain Skin: No Rash Neurologic: No: Weakness Psychiatric: No: Depression Endocrine: No: Polydipsia Hematologic/Lymphatic: No: Easy Bruising Physical Exam Narrative GENERAL: Well-nourished, well-developed patient. SKIN: Focused skin assessment warm/dry. HEAD: Normocephalic. EYES: No scleral icterus. No injection or drainage. NECK: Supple, trachea midline. No JVD or lymphadenopathy. CARDIOVASCULAR: Bradycardia rate and rhythm without murmurs, gallops, or rubs. RESPIRATORY: Breath sounds equal bilaterally. No accessory muscle use. GASTROINTESTINAL: Abdomen soft, non-tender, nondistended. MUSCULOSKELETAL: No cyanosis, or edema. BACK: Nontender without obvious deformity. No CVA tenderness. Neurologic exam normal. Data Data Last Documented VS Vital Signs Date Time Temp Pulse Resp B/P (MAP) Pulse Ox O2 Delivery O2 Flow Rate FiO2 11/29/16 11:22 29 15 116/58 (77) 98 Room Air 11/29/16 09:42 98.4 Orders Orders Electrocardiogram (11/29/16 09:48) Complete Blood Count With Diff (11/29/16 09:48) Comprehensive Metabolic Panel (11/29/16 09:48) Creatine Kinase (Cpk) (11/29/16 09:48) Troponin I (11/29/16 09:48) Prothrombin Time / Inr (Pt) (11/29/16 09:48) Act Partial Throm Time (Ptt) (11/29/16 09:48) Urinalysis - C+S If Indicated (11/29/16 09:48) Magnesium (Mg) (11/29/16 09:48) Thyroid Stimulating Hormone (11/29/16 09:48) Phosphorus (Po4) (11/29/16 09:48) Chest, Single Ap (11/29/16 09:48) Iv Access Insert/Monitor (11/29/16 09:48) Ecg Monitoring (11/29/16 09:48) Oximetry (11/29/16 09:48) Dopamine Inj Premix (Dopamine Inj Premix (11/29/16 10:15) Terbutaline Inj (Brethine Inj) (11/29/16 10:15) Consult Cardiology (11/29/16 ) Labs Laboratory Tests Test 11/29/16 09:55 White Blood Count 7.3 TH/MM3 Red Blood Count 4.28 MIL/MM3 Hemoglobin 13.9 GM/DL Hematocrit 41.4 % Mean Corpuscular Volume 96.7 FL Mean Corpuscular Hemoglobin 32.5 PG Mean Corpuscular Hemoglobin Concent 33.6 % Red Cell Distribution Width 13.2 % Platelet Count 209 TH/MM3 Mean Platelet Volume 7.8 FL Neutrophils (%) (Auto) 66.2 % Lymphocytes (%) (Auto) 21.3 % Monocytes (%) (Auto) 9.3 % Eosinophils (%) (Auto) 2.1 % Basophils (%) (Auto) 1.1 % Neutrophils # (Auto) 4.8 TH/MM3 Lymphocytes # (Auto) 1.6 TH/MM3 Monocytes # (Auto) 0.7 TH/MM3 Eosinophils # (Auto) 0.2 TH/MM3 Basophils # (Auto) 0.1 TH/MM3 CBC Comment DIFF FINAL Differential Comment Prothrombin Time 10.5 SEC Prothromb Time International Ratio 1.0 RATIO Activated Partial Thromboplast Time 25.7 SEC Blood Urea Nitrogen 33 MG/DL Creatinine 1.79 MG/DL Random Glucose 107 MG/DL Total Protein 7.2 GM/DL Albumin 3.7 GM/DL Calcium Level 9.6 MG/DL Phosphorus Level 3.6 MG/DL Magnesium Level 2.7 MG/DL Alkaline Phosphatase 80 U/L Aspartate Amino Transf (AST/SGOT) 16 U/L Alanine Aminotransferase (ALT/SGPT) 19 U/L Total Bilirubin 0.5 MG/DL Sodium Level 141 MEQ/L Potassium Level 4.3 MEQ/L Chloride Level 109 MEQ/L Carbon Dioxide Level 23.5 MEQ/L Anion Gap 9 MEQ/L Estimat Glomerular Filtration Rate 27 ML/MIN Total Creatine Kinase 45 U/L Troponin I LESS THAN 0.02 NG/ML Thyroid Stimulating Hormone 3rd Gen 1.620 uIU/ML [facility] Medical Decision Making Medical Screen Exam Complete: Yes Emergency Medical Condition: Yes Interpretation(s) 10:01 AM. EKG showed complete heart block. Ventricular rate 29. Differential Diagnosis Differential diagnosis including bradycardia, heart block. Narrative Course 81-year-old female with bradycardia. EKG showed complete heart block. I spoke with Dr. Mariscal, advised to call share dairy farmer collection supervisor. I spoke with Dr. Jackson , and Dr. Nelson. Dr. Leiva is out of town. Dr. Nelson will see patient and attempting pacemaker placement. External pacer and dopamine drip ready if needed. Diagnosis Primary Impression: Complete heart block Floyd Washington MD Nov 29, 2016 10:02
[2016-11-29 10:13] LABS: AUTOMATED NEUTROPHIL # 4.8 TH/MM3 (1.8-7.7); BASOPHIL # 0.1 TH/MM3 (0-0.2); BASOPHIL % 1.1 % (0.0-2.0); EOSINOPHIL # 0.2 TH/MM3 (0-0.4); EOSINOPHIL % 2.1 % (0.0-4.0); HEMATOCRIT 41.4 % (35.0-46.0); HEMO FLAGS DIFF FINAL; LYMPH % 21.3 % (9.0-44.0); LYMPHOCYTE # 1.6 TH/MM3 (1.0-4.8); MEAN CELL VOLUME 96.7 FL (80.0-100.0); MEAN CORPUSCULAR HEMOGLOBIN 32.5 PG (27.0-34.0); MEAN CORPUSCULAR HGB CONC 33.6 % (32.0-36.0); MONO % 9.3 % (0.0-8.0); NEUT % 66.2 % (16.0-70.0); PLATELET COUNT 209 TH/MM3 (150-450); RED BLOOD COUNT 4.28 MIL/MM3 (4.00-5.30); RED CELL DISTRIBUTION WIDTH 13.2 % (11.6-17.2); WHITE BLOOD COUNT 7.3 TH/MM3 (4.0-11.0)
[2016-11-29] MEDS ORDERED: DOPamine INJ PREMIX 500 ML IV PRN ×2 (10:15→12:45)
[2016-11-29] MEDS ORDERED: TERBUTALINE INJ 1 MG/ML AMP SQ PRN ×2 (10:15→12:45)
[2016-11-29 10:23] LABS: APTT (PATIENT) 25.7 SEC (24.3-30.1); PROTHROMBIN TIME - PATIENT 10.5 SEC (9.8-11.6)
--- NOTE | 2016-11-29 10:24 | RADRPT ---
EXAM DATE/TIME: 11/29/2016 10:19 [place] COMPARISON: CHEST SINGLE AP, June 15, 2016, 9:10. INDICATIONS : Short of breath, dizzy MEDICAL HISTORY : None. SURGICAL HISTORY : None. ENCOUNTER: Initial ACUITY: 2 days PAIN SCORE: 0/10 LOCATION: Bilateral chest FINDINGS: A single view of the chest demonstrates the lungs to be symmetrically aerated without evidence of mas s, infiltrate or effusion. The cardiomediastinal contours are unremarkable. Osseous structures are intact. CONCLUSION: No acute disease. No significant change has occurred. Jesus De Souza MD on November 29, 2016 at 10:22 Board Certified Radiologist. This report was verified electronically.
[2016-11-29 10:36] LABS: ANION GAP 9 MEQ/L (5-15); AST (GOT) 16 U/L (15-37); BICARBONATE 23.5 MEQ/L (21.0-32.0); BLOOD UREA NITROGEN 33 MG/DL (7-18); CHLORIDE 109 MEQ/L (98-107); GLOMERULAR FILTRATION RATE 27 ML/MIN (>89); MAGNESIUM 2.7 MG/DL (1.5-2.5); POTASSIUM 4.3 MEQ/L (3.5-5.1); SODIUM (NA) 141 MEQ/L (136-145)
[2016-11-29 10:37] LABS: ALT (GPT) 19 U/L (10-53)
[2016-11-29 10:47] LABS: ALKALINE PHOSPHATASE 80 U/L (45-117); TOTAL BILIRUBIN ADULT 0.5 MG/DL (0.2-1.0)
[2016-11-29 10:48] LABS: CREATINE KINASE 45 U/L (26-192)
[2016-11-29] MEDS ORDERED: BISACODYL 10 MG SUPP RECTAL PRN (12:00)
[2016-11-29] MEDS ORDERED: SODIUM CHLORIDE 0.9% FLUSH 10 ML FLUSH IV FLUSH PRN (12:00)
[2016-11-29] MEDS ORDERED: MAGNESIUM HYDROXIDE SUSP 30 ML CUP PO PRN (12:00)
[2016-11-29] MEDS ORDERED: SENNOSIDES 8.6 MG TAB PO PRN (12:00)
[2016-11-29] MEDS ORDERED: MISCELLANEOUS NURSING INFORMATION XX SCH (12:00)
[2016-11-29] MEDS ORDERED: RESP: ALBUTEROL 2.5 MG/IPRATROPIUM 0.5 MG NEB (PRN) INH (12:00)
[2016-11-29] MEDS ORDERED: CHLORHEXIDINE GLUCONATE 2 % 1 PACK (2 CLOTHS) TOP PRN (12:00)
[2016-11-29] MEDS ORDERED: LACTULOSE SYRUP 20 GM/30 ML CUP PO PRN (12:00)
[2016-11-29] MEDS: SODIUM CHLOR 0.9% 1000 ML INJ 1,000 ML IV SCH ×2 (12:00→23:55)
--- NOTE | 2016-11-29 12:34 | HHI.HP ---
[facility] Service Critical Care Medicine Primary Care Physician Mandie Rosas MD Admission Diagnosis complete heart block Diagnosis: (1) Complete heart block Diagnosis: Principal (2) Symptomatic bradycardia Diagnosis: Principal (3) Hypothyroidism Diagnosis: Principal (4) Hypertension Diagnosis: Secondary (5) Peripheral neuropathy Diagnosis: Secondary (6) Hyperlipidemia Diagnosis: Secondary (7) GERD (gastroesophageal reflux disease) Diagnosis: Secondary Chief Complaint: Complete Heart Block Symptomatic bradycardia Travel History International Travel<30 Days: No Contact w/Intl Traveler <30 Da: No Traveled to Known Affected Are: No History of Present Illness 81-year-old female with past medical history with history of hypothyroidism, hypertension, dyslipidemia presented with complains of bradycardia. Patient has been seen by Dr. Aquino in the office and was sent to ED for evaluation, as the HR was in low 30s. Blood pressure for EMS was in the 80s and patient was given atropine 0.5 mg IV and transported to ED. Patient denied dizziness chest pain or shortness of breath. She has had similar episode of bradycardia in the past which self resolved. ED contacted Dr. Nelson who will place permanent pacemaker today I evaluated the patient in the ED. She is feeling better. HR 25-30. I have started patient on Dopamine gtt to keep HR >35. Patient is agreeable for permanent pacemaker. She is complaint with levothyroxine, and TSH was normal. Review of Systems ROS Limitations: Other (as per HPI) Past Family Social History Allergies: Coded Allergies: acetaminophen (Unverified Adverse Reaction, Severe, N&V, 11/29/16) amoxicillin (Unverified Adverse Reaction, Severe, Nausea/Vomiting, ) . atenolol (Unverified Adverse Reaction, Severe, N&V, 11/29/16) bupropion (Unverified Adverse Reaction, Severe, N&V, 11/29/16) celecoxib (Unverified Adverse Reaction, Severe, N&V, 11/29/16) . cephalexin (Unverified Adverse Reaction, Severe, N&V, 11/29/16) chlorthalidone (Unverified Adverse Reaction, Severe, N&V, 11/29/16) clotrimazole (Unverified Adverse Reaction, Severe, N&V, 11/29/16) colestipol (Unverified Adverse Reaction, Severe, N&V, 11/29/16) hydrocodone (Unverified Adverse Reaction, Severe, N&V, 11/29/16) levofloxacin (Unverified Adverse Reaction, Severe, N&V, 11/29/16) metoprolol (Unverified Adverse Reaction, Severe, N&V, 11/29/16) metronidazole (Unverified Adverse Reaction, Severe, N&V, 11/29/16) nystatin (Unverified Adverse Reaction, Severe, N&V, 11/29/16) penicillin G (Unverified Adverse Reaction, Severe, Nausea/Vomiting, ) pravastatin (Unverified Adverse Reaction, Severe, N&V, 11/29/16) Uncoded Allergies: CEPHALEXIN (Allergy, Severe, DIAPHORETIC ;VERY WEAK LEGS; NAUSEA; DIARRHEA , 06/12/14) . STATINS (Allergy, Severe, MUSCLE PAIN, 06/12/14) . 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 Hypertension Past Surgical History Cholecystectomy Bilateral cataract ORIF of right femur Left hip replacement Hernia repair Reported Medications Fluticasone Nasal [place] 50 Mcg/Act Naspr 2 [place] EACH NARE DAILY Cozaar (Losartan Potassium) 25 Mg Tab 25 Mg PO DAILY Aspirin 81 Mg Chew 81 Mg CHEW DAILY Stacey Allergy (Fexofenadine HCl) Unknown Strength Tab Unknown Dose PO BID Pepcid (Famotidine) Unknown Strength Tab Unknown Dose PO BID Meloxicam (Meloxicam (Bulk)) 1 Pow Pow Gabapentin 300 Mg Cap 300 Mg PO TID Restasis Opth 0.05% (Cyclosporine Opth 0.05%) 0.05% Emul 1 Drop EACH EYE DAILY Levothyroxine (Levothyroxine Sodium) 75 Mcg Tab 75 Mcg PO DAILY Ezetimibe 10 Mg Tab 10 Mg PO DAILY Active Ordered Medications Just started on Dopamine gtt Family History No family history of cardiac dysrhythmias Both parents had heart disease Social History No tobacco use. Occasional alcohol use Physical Exam Vital Signs Vital Signs Date Time Temp Pulse Resp B/P (MAP) Pulse Ox O2 Delivery O2 Flow Rate FiO2 11/29/16 11:58 30 123/75 11/29/16 11:22 29 15 116/58 (77) 98 Room Air 11/29/16 11:15 24 16 94/46 (62) 98 Room Air 11/29/16 11:14 23 16 99/51 (67) 98 Room Air 11/29/16 11:02 29 16 127/56 (79) 95 Room Air 11/29/16 11:00 28 16 108/56 (73) 96 Room Air 11/29/16 10:52 29 18 110/53 (72) 100 Room Air 11/29/16 10:45 29 16 127/58 (81) 99 Room Air 11/29/16 09:54 97 Room Air 11/29/16 09:42 98.4 38 19 146/61 (89) 98 Room Air Physical Exam GENERAL: Well-nourished, well-developed patient. Lying in ED bed SKIN: Skin assessment warm/dry. HEAD: Normocephalic. EYES: No scleral icterus. No injection or drainage. NECK: Supple, trachea midline. No JVD or lymphadenopathy. no coleman waves CARDIOVASCULAR: Bradycardia rate and rhythm without murmurs, gallops, or rubs. EKG with complete heart block RESPIRATORY: Breath sounds equal bilaterally. No accessory muscle use. GASTROINTESTINAL: Abdomen soft, non-tender, nondistended. MUSCULOSKELETAL: No cyanosis, or edema. BACK: Nontender without obvious deformity. No CVA tenderness. NEURO: AOx3 No focal deficits Laboratory Laboratory Tests Test 11/29/16 09:55 White Blood Count 7.3 Red Blood Count 4.28 Hemoglobin 13.9 Hematocrit 41.4 Mean Corpuscular Volume 96.7 Mean Corpuscular Hemoglobin 32.5 Mean Corpuscular Hemoglobin Concent 33.6 Red Cell Distribution Width 13.2 Platelet Count 209 Mean Platelet Volume 7.8 Neutrophils (%) (Auto) 66.2 Lymphocytes (%) (Auto) 21.3 Monocytes (%) (Auto) 9.3 Eosinophils (%) (Auto) 2.1 Basophils (%) (Auto) 1.1 Neutrophils # (Auto) 4.8 Lymphocytes # (Auto) 1.6 Monocytes # (Auto) 0.7 Eosinophils # (Auto) 0.2 Basophils # (Auto) 0.1 CBC Comment DIFF FINAL Differential Comment Prothrombin Time 10.5 Prothromb Time International Ratio 1.0 Activated Partial Thromboplast Time 25.7 Blood Urea Nitrogen 33 Creatinine 1.79 Random Glucose 107 Total Protein 7.2 Albumin 3.7 Calcium Level 9.6 Phosphorus Level 3.6 Magnesium Level 2.7 Alkaline Phosphatase 80 Aspartate Amino Transf (AST/SGOT) 16 Alanine Aminotransferase (ALT/SGPT) 19 Total Bilirubin 0.5 Sodium Level 141 Potassium Level 4.3 Chloride Level 109 Carbon Dioxide Level 23.5 Anion Gap 9 Estimat Glomerular Filtration Rate 27 Total Creatine Kinase 45 Troponin I LESS THAN 0.02 Thyroid Stimulating Hormone 3rd Gen 1.620 Result Diagram: 11/29/1695411/29/16954 Imaging CXR No acute disease Caprini VTE Risk Assessment Caprini VTE Risk Assessment: Mod/High Risk (score >= 2) Caprini Risk Assessment Model Point Value = 1 Point Value = 2 Point Value = 3 Point Value = 5 Age 41-60 Minor surgery BMI > 25 kg/m2 Swollen legs Varicose veins or History of unexplained or recurrent spontaneous Oral contraceptives or hormone replacement Sepsis (< 1 month) Serious lung disease, including pneumonia (< 1 month) Abnormal pulmonary function Acute myocardial infarction Congestive heart failure (< 1 month) History of inflammatory bowel disease Medical patient at bed rest Age 61-74 Arthroscopic surgery Major open surgery (> 45 min) Laparoscopic surgery (> 45 min) Malignancy Confined to bed (> 72 hours) Immobilizing plaster cast Central venous access Age >= 75 History of VTE Family history of VTE Factor V Leiden Prothrombin [id number] Lupus anticoagulant Anticardiolipin antibodies Elevated serum homocysteine Heparin-induced thrombocytopenia Other congenital or acquired thrombophilia Stroke (< 1 month) Elective arthroplasty Hip, pelvis, or leg fracture Acute spinal cord injury (< 1 month) Prophylaxis Regimen Total Risk Factor Score Risk Level Prophylaxis Regimen 0-1 Low Early ambulation 2 Moderate Order ONE of the following: *Sequential Compression Device (SCD) *Heparin 5000 units SQ BID 3-4 Higher Order ONE of the following medications: *Heparin 5000 units SQ TID *Enoxaparin/Lovenox 40 mg SQ daily (WT < 150 kg, CrCl > 30 mL/min) *Enoxaparin/Lovenox 30 mg SQ daily (WT < 150 kg, CrCl > 10-29 mL/min) *Enoxaparin/Lovenox 30 mg SQ BID (WT < 150 kg, CrCl > 30 mL/min) AND/OR *Sequential Compression Device (SCD) 5 or more Highest Order ONE of the following medications: *Heparin 5000 units SQ TID (Preferred with Epidurals) *Enoxaparin/Lovenox 40 mg SQ daily (WT < 150 kg, CrCl > 30 mL/min) *Enoxaparin/Lovenox 30 mg SQ daily (WT < 150 kg, CrCl > 10-29 mL/min) *Enoxaparin/Lovenox 30 mg SQ BID (WT < 150 kg, CrCl > 30 mL/min) AND *Sequential Compression Device (SCD) Assessment and Plan Assessment and Plan NEURO: - Minimize sedation. Holding gabapentin for now RESP: - Nasal cannula oxygen. DuoNeb every 6 hours when necessary CV: Complete heart block History of hypertension Dyslipidemia - Symptomatic complete heart block. Dr. Nelson to place permanent pacemaker today - Dopamine titrate to keep map above 65 and heart rate about 35 - Patient is on no AV node blocking drugs and TSH is normal - Normal saline IV fluids 75 ml per hour - Continue home aspirin GI: GERD - Nothing by mouth for pacemaker placement, famotidine : - Monitor renal function closely. No indication for Limon catheter. ID: - Lorrie-procedure antibiotics per cardiology HEME: - Monitor CBC, CMP, coags ENDO: Hypothyroidism - Electrolyte replacement per protocol - TSH is normal, continue home Synthroid PROPH: - Bilateral lower extremity SCDs. Start chemical DVT prophylaxis 24 hours after pacemaker placement LINES: - Utilize peripheral IVs, central line if needed CC time 35 min Patient has life-threatening complete heart block. I have started dopamine to titrate and keep heart rate more than 35. ICU close monitoring for emergency temporary pacemaker placement if needed. Cardiology to place permanent pacemaker today Will transfer to hospitalist service after pacemaker placement Code Status Full Discussed Condition With Dr. [place] Problem Qualifiers (1) Hypothyroidism: Qualified Codes: E03.9 - Hypothyroidism, unspecified Amaya Schmidt MD Nov 29, 2016 12:34
[2016-11-29] MEDS: ENOXAPARIN SODIUM 30 MG/0.3 ML SYRINGE SQ SCH (13:00)
[2016-11-29] MEDS ORDERED: VANCOMYCIN 500 MG VIAL ONE (13:20)
[2016-11-29] MEDS ORDERED: ceFAZolin INJ 1,000 MG VIAL ONE (13:20)
[2016-11-29] MEDS ORDERED: LIDOCAINE HCL 2% 50 ML VIAL ONE (13:20)
[2016-11-29] MEDS ORDERED: VANCOMYCIN HCL 1000 MG VIAL ONE (13:20)
[2016-11-29] MEDS ORDERED: HEPARIN-NS/PF INJ 1,000 ML ONE (13:22)
[2016-11-29] MEDS ORDERED: MIDAZOLAM HCL 2 MG/2 ML VIAL ONE (13:29)
[2016-11-29] MEDS ORDERED: TERBUTALINE INJ 1 MG/ML AMP ONE (14:00)
[2016-11-29] MEDS ORDERED: ONDANSETRON HCL 4 MG/2 ML VIAL IV PUSH PRN (15:30)
[2016-11-29] MEDS ORDERED: ZOLPIDEM TARTRATE 5 MG TAB PO PRN (15:30)
[2016-11-29] MEDS ORDERED: BACITRACIN OINT 0.9 GM PKT TOP PRN (15:30)
--- NOTE | 2016-11-29 15:37 | CATHPROC ---
[employer] HIS Report Study Information Study Number Scheduled Start Study Start [id number] 11/29/2016 Nov 29 2016 12:35PM Referring Institution Admit Source Facility Department 1 Other [facility] - Car Sales Associate Physician and Clinical Staff Initial Rivka Robert Administration Specialist Janene Jimenez,GRINDER SET UP OPERATOR EXTERNAL TECH2 Administration Specialist Annie Burr,BELA Other Anesthesia, FOOD SERVICE ASSISTANT Recorder Annie Burr,BELA Recorder Lois Rees,RT(R) (BS) Scrub Mindi CorralRT(R) TECH2 Procedures Performed Procedure Location (Site) Vessel Name Lead Insertion Pacemaker Temp Fem Vein (right) Femoral Vein Equipment Time Adding Machine Mechanic Description Size Mfg Part Number Used/Scraped [id number] 13:53 DASH CASTILLO PACING CATHETER J CURVE FR 5 Used *[id number]- INTRODUCER SET, 13:53 [employer] FR 5 SC-NT-U-SST Used MICROPUNCTURE, STIFFENED *[id number] 14:30 [employer] PACER SAFE SHEATH, FR6, 13CM FR 6 [id number]-[id number] Used 14:38 [employer] MEDICAL PACER SAFE SHEATH, FR6, 13CM FR 6 CLS-1006 Used PROBE COVER, STERILE [id number] 13:53 [employer] * Used ULTRASOUND W/ GEL *[id number] 15:07 Needle Sponge Count 2 22 Used 14:08 Needle Sponge Count 4 4 Used 14:15 Needle Sponge Count 4 44 Used 15:06 Needle Sponge Count 6 6 Used LEAD, CAPSURE FIX NOVUS, 4076-45CM 14:43 [employer] 45CM Used 45CM *[id number] LEAD, CAPSURE FIX NOVUS, 4076-52CM 14:46 [employer] 52CM Used 52CM *[id number] 15:12 [employer] MONITOR, PACEMAKER\ICD 34814X Used PACEMAKERAMBER DR MRI 14:56 [employer] OEA-DDDR [id number] Used [employer] Equipment Model, Serial, Lot Number and Expiration Data Description Model Number Serial Number Lot Number Expiration Date INTRODUCER SET, [id number] 10-25-2019 MICROPUNCTURE, STIFFENED LEAD, CAPSURE FIX NOVUS, 45CM 4076 [id number] 09-25-2018 LEAD, CAPSURE FIX NOVUS, 52CM 4076 [id number] 08-22-2018 PACEMAKER, ADVISA DR MALIN [id number] 05-07-2018 [employer]CAN PROBE COVER, STERILE [id number] 10-10-2017 ULTRASOUND W/ GEL History: Allergies Allergy Reaction amoxicillin Nausea/Vomiting Celebrex N CEPHALEXIN DIAPHORETIC ;VERY WEAK LEGS; NAUSEA; DIARRHEA Colestid N Flagyl N Levaquin N Lotrimin N nystatin N Penicillin Nausea/Vomiting Pravachol N Tenoretic-100 N Toprol Xl N Vicodin N Wellbutrin N STATINS MUSCLE PAIN hydrocodone N acetaminophen N atenolol N chlorthalidone N clotrimazole N metronidazole N pravastatin N metoprolol N bupropion N colestipol N penicillin G Nausea/Vomiting levofloxacin N celecoxib N History: Risk Factors Hypertension Dyslipidemia Yes Yes Medication Medication Total Dose (Bolus/Oral) Medication Total Dosage/Unit 2% XYLOCAINE 100 mL Medications (Bolus/Oral) Medication Time Given Dosage/Unit Administered By Reason 2% XYLOCAINE 11/29/2016 1:50:32 PM 50 mL Rivka Nelson 50 mL 2% XYLOCAINE given in lab by Rivka Nelson in Right Groin via Subcutaneous. 2% XYLOCAINE 11/29/2016 2:25:43 PM 50 mL Rivka Nelson 50 mL 2% XYLOCAINE given in lab by Rivka Nelson via Subcutaneous given in left upper chest. Order ed by Rivka Nelson. Medication (Drip) Medication Time Given Dosage/Unit Concentration/Unit Diluent (ml) Solution DOPAMINE HCL 11/29/2016 1:06:30 PM 2 mcg/kg/min 800 mg 500 D5W Patient arrived on 2 mcg/kg/min DOPAMINE HCL in Right Antecubital via Peripheral IV. Pump/Drip Flow = 6.6 ml/hr using D5W with a concentration of 800 mg in 500 ml. IV Solutions 11/29/2016 1:20:30 PM 0 mL (IV) NaCl .9 IV Solutions given in lab by Rivka Nelson in Right Antecubital via Peripheral IV. Pump/Drip Flow = 30 ml/hr using NaCl .9. Ordered by Rivka Nelson. Reason: As per physicians verbal order. Initial Case Assessment Cardiovascular HR Rhythm NIBP Chest Pain 31 chb 98/50 0 Edema Present Skin color Skin None Normal Warm Dry Circulatory - Right Pulses Dorsalis Pedis Radial 1 1 Scale (0,1,2,3,4,d) Circulatory - Left Pulses Dorsalis Pedis Radial 1 1 Scale (0,1,2,3,4,d) Circulatory - Lower Extremities Color Lower Right Color Lower Left Normal Normal Neurological State Oriented to time-place- Alert Moves all extremities person Respiration - General Respiration Rate SpO2 (%) O2 (lpm) (B/min) 20 97 6 Chronological Log Time Study Chronological Log Patient arrived on 2 mcg/kg/min DOPAMINE HCL in Right Antecubital via Peripheral IV. Pump/Drip Flow = 6.6 ml/hr 13:06:30 using D5W with a concentration of 800 mg in 500 ml. 13:06:39 Patient arrived via Bed. 13:06:43 Patient Name, D.O.B, / Armband Verified By R.N. 13:06:45 Consent signed by the physician and the patient and verified by the Car Sales Associate staff. 13:06:48 Pre-op and post- op instructions given; patient acknowledges understanding of instructions. 13:08:52 Verbal Stimulation=2 Physical Stimulation=2 Airway=2 Respiration=2 TOTAL=8. (0=absent, 1=li mited, 2=present) 13:08:55 Patient has been NPO for More than 6Hrs. 13:08:55 Skin Breakdown- none per pt 13:08:56 Patient Warmer Placed on the Table. 13:08:57 Disposable Defibrillator Pads Placed On Patient. 13:08:58 Danny Prominences Protected 13:09:00 A # 20 IV was noted in the Hand (left). Grade = 0 0.9ns kvo 13:09:00 A # 18 IV was noted in the Antecubital (right). Grade = 0 dopamine infusing from at 2mcg/kg /min ER 13:09:01 History and physical on the chart or being dictated. IV Solutions given in lab by Rivka Nelson in Right Antecubital via Peripheral IV. Pump/Drip Flow = 30 ml/hr using 13:20:30 NaCl .9. Ordered by Rivka Nelson. Reason: As per physicians verbal order. 13:25:17 Patient complained of pain in arm. Dopamine drip and saline drip stopped due to infiltratio n. Assessment: Initial Case, HR=31 BPM, Rhythm=chb, NIBP=98/50 mmhg, Chest Pain=0, Edema=None, Col or=Normal, Skin = Warm, Dry Right Pulses: Spike Ped=1, Radial=1 Left Pulses: Spike Ped=1, Radial=1 13:35:36 Lower Right Extremities: Color=Normal Lower Left Extremities: Color=Normal Neurological: State=Alert, Ox3, ALLEN Respiration: Resp=20 B/min, SpO2=97 %, O2=6 lpm 13:38:15 Table restraints applied according to hospital policy 13:38:20 Bovie ground pad applied to: abd 13:38:33 Right groin prepped with 2% chlorhexidine, and draped after a 3 min. waiting time. 13:48:30 MD arrived. Made aware of infiltrate and d/c of dopamine. Time Out. Correct patient, procedure, procedure equipment, site and side verified with physicia n present. Time 13:50:00 concurred by MD, individual staff and FOOD SERVICE ASSISTANT. Time Out #2 - Consents verified, patient in correct position, all results are labled and displa yed, safety precautions 13:50:16 taken, antibiotics administered. Time out concurred by MD, individual staff and FOOD SERVICE ASSISTANT in procedu re 13:50:29 Case Start 13:50:32 50 mL 2% XYLOCAINE given in lab by Rivka Nelson in Right Groin via Subcutaneous. 13:51:48 A PACING CATHETER J CURVE FR 5 was advanced to the right ventricle. Rate = 40, Output = 10, MA = 10. 13:53:19 Lead placement verified under fluoroscopy 13:58:21 Reference ECG taken 14:01:12 Temporary pacing catheter sutured in place 14:03:24 The Recorder is being relieved by Lois Rees, RT(R) (BS). 14:03:43 The Administration Specialist is being relieved by Annie Burr, BELA. First Sponge And Instrument Count Done by Mindi Corral, RT(R) TECH2. 14:08:35 Hypo's: 6, Sponges: sponges, Bovie/scratch: 2 Sutures: 12, Blades: 2, Instruments: 26, Syveck Patches: ~SYVECK PATCH~ Terbutaline 1mg sc diluted as prescribed and administered 10 injections concentrically to R AC IV Dopamine infiltration 14:10:41 site. 14:12:20 Upper Chest Prepped Times Two. 50 mL 2% XYLOCAINE given in lab by Rivka Nelson via Subcutaneous given in left upper chest. Ordered by 14:25:43 Rivka Nelson. 14:27:57 Vascular access was obtained in the Subclav. Vein (Lft. A INTRODUCER SET, MICROPUNCTURE, STIFFENED FR 5 was advanced into the Subclav. Vein (Lft using the 14:28:07 Percutaneous technique. A SAFE SHEATH, FR6, 13CM FR 6 was exchanged in the Subclav. Vein (Lft. This was necessary in or blaze to accomodate 14:29:31 a larger catheter. 14:30:07 Surgical Incision Made. 14:31:33 Vascular access was obtained in the Subclav. Vein (Lft. A INTRODUCER SET, MICROPUNCTURE, STIFFENED FR 5 was advanced into the Subclav. Vein (Lft using the 14:31:39 Percutaneous technique. 14:37:40 A SAFE SHEATH, FR6, 13CM FR 6 was advanced into the Subclav. Vein (Lft using the Percutaneo us technique. 14:40:27 A LEAD, CAPSURE FIX NOVUS, 52CM 52CM was inserted and positioned in the RV. 14:42:15 A LEAD, CAPSURE FIX NOVUS, 45CM 45CM was inserted and positioned in the RA. 14:43:53 Lead placement verified under fluoroscopy 14:48:18 The Atrial lead was sutured to the fascia. 14:48:54 The RV lead was sutured to the fascia. 14:51:10 The RV lead impedance and threshold being tested. 14:51:24 The Atrial lead impedance and threshold is being tested. 14:53:22 Pocket flushed with antibiotic solution 14:55:40 A PACEMAKER, AMBER DERASSCAN OEA-DDDR was connected and placed in the pocket. 14:58:25 Device connected to leads 14:59:06 The pocket was closed. Second Sponge And Instrument Count Done by Rivka Nelson. 15:05:50 Hypo's: 6, Sponges: 25 sponges, Bovie/scratch: 2 Sutures: ~SUTURE~, Blades: 2, Instruments: ~INSTRU~, Syveck Patches: ~SYVECK PATCH~ 15:17:06 Case End 15:17:16 No case complications noted. 15:17:30 Bedside Report will be given. 15:17:31 Implantable Device card placed in patient's chart. The Final Sponge And Instrument Count Done by Annie Burr RN. 15:17:48 Hypo's: 6, Sponges: 25sponges, Bovie/scratch: 2 Sutures: 12, Blades: 2, Instruments: 26, Syveck Patches: ~SYVECK PATCH~ 15:18:08 Temporary pacing catheter removed 15:19:47 Sheath removed; pressure applied to access site. 15:26:38 Sterile dressing applied to site 15:33:45 Patient moved to [facility] End Study - Contrast Media Used In Study Contrast Total Opened (mL) Total Used (mL) Total Wasted (mL) Unspecified 0 0 0 End Study - Radiation Exposure Fluoro Time (minutes) 4.7 End Study - Sheaths Sheaths Pulled By Sheath Hold Time (min) Janene Jimenez End Study - Patient Disposition Complications Transferred To No Critical Care Bed
[2016-11-29] MEDS ORDERED: MEPERIDINE HCL 50 MG/ML VIAL IV PUSH PRN (16:45)
[2016-11-29] MEDS ORDERED: MEPERIDINE HCL 25 MG/ML VIAL IV ONE (17:00)
[2016-11-29] MEDS: SODIUM CHLORIDE 0.9% FLUSH 10 ML FLUSH IV FLUSH SCH (20:55)
[2016-11-29] MEDS: DOCUSATE SODIUM 50 MG/SENNA 8.6 MG TAB PO SCH (20:55)
--- NOTE | 2016-11-29 21:01 | RADRPT ---
EXAM DATE/TIME: 11/29/2016 20:35 [place] COMPARISON: CHEST SINGLE AP, November 29, 2016, 10:19. INDICATIONS : Rule out Pneumothorax. MEDICAL HISTORY : None. SURGICAL HISTORY : Pacemaker. ENCOUNTER: Initial ACUITY: 1 day PAIN SCORE: 0/10 LOCATION: Bilateral chest FINDINGS: A single view of the chest demonstrates the lungs to be symmetrically aerated without evidence of mas s, infiltrate or effusion. The cardiomediastinal contours revealed left ventricular cardiomegaly and atherosclerotic changes of the aorta. Osseous structures are intact. Placement of bipolar pacemaker overlying the left hemithorax with no pneumothorax CONCLUSION: Place a bipolar pacemaker overlying the left hemithorax. No complication and no pneumothorax Vincenzo Villar MD on November 29, 2016 at 20:59 Board Certified Radiologist. This report was verified electronically.
--- NOTE | 2016-11-29 21:14 | EKG ---
Date Performed: 11/29/2016 Time Performed: 09:40:01 PTAGE: 81 years EKG: Third-degree heart block RIGHT BUNDLE BRANCH BLOCK ABNORMAL ECG PREVIOUS TRACING : 06/16/2016 05.04 compared to the previous EKG third-degree heart block is n ew DOCTOR: Jermaine Batista Interpretating Date/Time 11/29/2016 21:13:57
--- NOTE | 2016-11-29 23:15 | MP ---
cc: RIVKA NELSON MD, MARK B. M.D. SAXOUR, JOANNE D. MD DATE OF SURGERY 11/29/16 INDICATION Emergent complete heart block PROCEDURE 1. Temporary pacemaker placement. 2. Permanent pacemaker placement. 3. Dual-chamber CONSENT Full informed consent was obtained prior to procedures. Risk of , bleeding, perforation, aspiration, foreseen and unforeseen complications were fully reviewed. The patient fully appeared to understand. PROCEDURAL STATEMENT 1 Temorary pacer The patient and prepped and draped in usual manner. Right femoral vein was entered using a micropuncture technique. Via the 6-[place] sheath the temporary pacemaker was placed in the right ventricular apex. The pacemaker lead was attached to the skin. Excellent pacing and sensing parameters were noted. 2 Permanent dual chamber pacer Following this, the undersigned redraped and reprepped, the chest was prepped and anesthesia was given per the Anesthesia Department. Attention was then directed to the left infraclavicular space. Using two micropuncture sticks two guidewires were placed in the venous circulation. A pacemaker pocket was then fashioned using blunt sharp and cautery dissection. Following this, two introducer sheaths were placed in venous circulation. Ventricular lead was passed in right ventricular apex and atrial lead in the right atrial appendage. Excellent pacing and sensing parameters were noted in both chambers. Both leads were sewn down to pectoralis fascia. Both leads with connected to the pulse generator. Set screws were tightened but not over tightened. Excellent pacing and sensing parameters were noted. The pocket was then closed in three layers. CONCLUSION Successful placement of dual-chamber pacemaker. At the end of procedure, the temporary pacemaker was removed. Manual pressure applied until good hemostasis was achieved in the right femoral vein. Patient returned to room in stable condition. PLAN We will plan to discharge the patient tomorrow. Cxray to r/o pneumothorax. Follow up with Dr. Aquino in due course. Rivka Nelson MD, FRCP,[facility]/ /3:17 PM /11:04 PM Loida DIXON
[2016-11-30] MEDS ORDERED: VANCOMYCIN INJ 1,000 MG in SODIUM CHLOR 0.9% 250 ML INJ 250 ML IV ONE (01:00)
[2016-11-30 03:15] VITALS: BP 119/69; PULSE 84; RESP 18; TEMP 98; O2SAT 97
[2016-11-30 03:28] VITALS: PULSE 90
[2016-11-30] MEDS ORDERED: CHLORHEXIDINE GLUCONATE 2 % 1 PACK (2 CLOTHS) TOP SCH (04:00)
[2016-11-30 05:16] LABS: AUTOMATED NEUTROPHIL # 4.8 TH/MM3 (1.8-7.7); BASOPHIL # 0.1 TH/MM3 (0-0.2); BASOPHIL % 0.8 % (0.0-2.0); EOSINOPHIL # 0.2 TH/MM3 (0-0.4); EOSINOPHIL % 2.4 % (0.0-4.0); HEMATOCRIT 33.9 % (35.0-46.0); HEMO FLAGS DIFF FINAL; LYMPH % 19.1 % (9.0-44.0); LYMPHOCYTE # 1.3 TH/MM3 (1.0-4.8); MEAN CELL VOLUME 96.6 FL (80.0-100.0); MEAN CORPUSCULAR HEMOGLOBIN 32.7 PG (27.0-34.0); MEAN CORPUSCULAR HGB CONC 33.8 % (32.0-36.0); MONO % 8.7 % (0.0-8.0); PLATELET COUNT 149 TH/MM3 (150-450); RED BLOOD COUNT 3.51 MIL/MM3 (4.00-5.30); RED CELL DISTRIBUTION WIDTH 13.2 % (11.6-17.2); WHITE BLOOD COUNT 6.9 TH/MM3 (4.0-11.0)
[2016-11-30 06:28] LABS: ALKALINE PHOSPHATASE 67 U/L (45-117); ALT (GPT) 17 U/L (10-53); ANION GAP 8 MEQ/L (5-15); AST (GOT) 14 U/L (15-37); BICARBONATE 22.3 MEQ/L (21.0-32.0); BLOOD UREA NITROGEN 24 MG/DL (7-18); CHLORIDE 115 MEQ/L (98-107); GLOMERULAR FILTRATION RATE 58 ML/MIN (>89); MAGNESIUM 2.1 MG/DL (1.5-2.5); POTASSIUM 3.8 MEQ/L (3.5-5.1); SODIUM (NA) 145 MEQ/L (136-145); TOTAL BILIRUBIN ADULT 0.5 MG/DL (0.2-1.0)
[2016-11-30 07:00] VITALS: BP 133/82; PULSE 87; RESP 18; TEMP 98.1; O2SAT 96
[2016-11-30] MEDS ORDERED: LEVOTHYROXINE SODIUM 75 MCG TAB PO SCH (09:00)
[2016-11-30] MEDS ORDERED: NON-FORMULARY DRUG (Cyclosporine Opth 0.05% (Restasis Opth 0.05%) 1 DROP) EACH EYE SCH (09:00)
[2016-11-30] MEDS: SODIUM CHLORIDE 0.9% FLUSH 10 ML FLUSH IV FLUSH SCH (09:00)
[2016-11-30] MEDS: DOCUSATE SODIUM 50 MG/SENNA 8.6 MG TAB PO SCH (09:00)
[2016-11-30] MEDS ORDERED: ASPIRIN 81 MG CHEW TAB CHEW SCH (09:00)
[2016-11-30] MEDS ORDERED: FLUTICASONE PROPIONATE 50 MCG/ACT 16 GM NASAL SPRAY EACH NARE SCH (09:00)
--- NOTE | 2016-11-30 09:35 | HHI.PR ---
Subjective Remarks resting comfortably with no distress. denies pain. no other complaints. d/w the RN. Objective Vitals Vital Signs Date Time Temp Pulse Resp B/P (MAP) Pulse Ox O2 Delivery O2 Flow Rate FiO2 11/30/16 03:28 90 11/30/16 03:15 98.0 84 18 119/69 (86) 97 11/29/16 23:15 98.0 89 18 122/71 (88) 97 11/29/16 23:10 84 11/29/16 22:00 83 18 120/68 (85) 97 11/29/16 21:00 83 18 128/56 (80) 97 11/29/16 20:42 96 21 11/29/16 20:00 97.8 84 18 112/71 (85) 94 11/29/16 20:00 94 Room Air 11/29/16 19:00 79 18 94/52 (66) 95 11/29/16 19:00 75 11/29/16 18:07 100 Nasal Cannula 3.00 11/29/16 16:00 90 11/29/16 16:00 97.6 94 16 113/65 (81) 95 11/29/16 13:03 11/29/16 11:58 30 123/75 11/29/16 11:22 29 15 116/58 (77) 98 Room Air 11/29/16 11:15 24 16 94/46 (62) 98 Room Air 11/29/16 11:14 23 16 99/51 (67) 98 Room Air 11/29/16 11:02 29 16 127/56 (79) 95 Room Air 11/29/16 11:00 28 16 108/56 (73) 96 Room Air 11/29/16 10:52 29 18 110/53 (72) 100 Room Air 11/29/16 10:45 29 16 127/58 (81) 99 Room Air 11/29/16 09:54 97 Room Air 11/29/16 09:42 98.4 38 19 146/61 (89) 98 Room Air I/O 11/29/16 11/29/16 11/29/16 11/30/16 11/30/16 11/30/16 07:00 15:00 23:00 07:00 15:00 23:00 Intake Total 1200 ml 2328 ml Output Total 0 ml 1350 ml Balance 1200 ml 978 ml Intake Oral 200 ml 1440 ml IV Total 1000 ml 888 ml Output Urine Total 0 ml 1350 ml # Voids 0 # Bowel Movements 0 0 Result Diagram: 11/30/160 11/30/16 0450 Imaging Last Impressions Chest X-Ray 11/29/16 0948 Signed Impressions: Service Date/Time: Tuesday, November 29, 2016 10:19 - CONCLUSION: No acute disease. No significant change has occurred. Jesus De Souza MD Objective Remarks GENERAL: This is a well-nourished, well-developed patient, in no apparent distress. CARDIOVASCULAR: Regular rate and regular rhythm without murmurs, gallops, or rubs. RESPIRATORY: Clear to auscultation. Breath sounds equal bilaterally. No wheezes , rales, or rhonchi. GASTROINTESTINAL: Abdomen soft, non-tender, nondistended. Normal, active bowel sounds MUSCULOSKELETAL: Extremities without clubbing, cyanosis, or edema. NEURO: Alert & Oriented x4 to person, place, time, situation. Moves all ext x4 Procedures pacemaker insertion. Medications and IVs Current Medications Dopamine HCl/ Dextrose 500 ml @ 9.9 mls/hr TITRATE PRN IV Blood Pressure Management Last administered on 11/29/16 11:58; Start 11/29/16 at 10:15; Stop 11/29/16 at 13:44; Status DC Terbutaline Sulfate (Brethine Inj) 1 mg UNSCH PRN SQ For Extravasation; Start 11/29/16 at 10:15; Status Cancel Sodium Chloride 1,000 ml @ 84 mls/hr [id number] IV Last administered on 23:55; Start 11/29/16 at 12:00 Sodium Chloride (NS Flush) 2 ml UNSCH PRN IV FLUSH FLUSH AFTER USING IV ACCESS ; Start 11/29/16 at 12:00 Sodium Chloride (NS Flush) 2 ml BID IV FLUSH Last administered on 11/29/16 20 :55; Start 11/29/16 at 21:00 Albuterol/ Ipratropium (Duoneb Neb) 1 ampule Q2HR NEB PRN INH WHEEZING; Start 11/29/16 at 12:00 Enoxaparin Sodium (Lovenox Inj) 30 mg Q24H SQ ; Start 11/29/16 at 13:00 Miscellaneous Information 1 [id number] XX ; Start 11/29/16 at 12:00 Chlorhexidine Gluconate (Chlorhexidine 2% Cloth) 3 pack Taper DAILY@04 TOP ; Start 11/30/16 at 04:00; Stop 11/26/17 at 03:59 Chlorhexidine Gluconate (Chlorhexidine 2% Cloth) 3 pack UNSCH PRN TOP HYGIENIC CARE; Start 11/29/16 at 12:00 Senna/Docusate Sodium (Lorrie-Colace) 1 tab BID PO ; Start 11/29/16 at 21:00 Magnesium Hydroxide (Milk Of Magnesia Liq) 30 ml Q12H PRN PO Mild constipation ; Start 11/29/16 at 12:00 Sennosides (Senokot) 17.2 mg Q12H PRN PO Moderate constipation; Start at 12:00 Bisacodyl (Dulcolax Supp) 10 mg DAILY PRN RECTAL SEVERE CONSITIPATION; Start 11/29/16 at 12:00 Lactulose (Lactulose Liq) 30 ml DAILY PRN PO SEVERE CONSITIPATION; Start 11/29 at 12:00 Aspirin (Aspirin Chew) 81 mg DAILY CHEW ; Start 11/30/16 at 09:00 Fluticasone Propionate (Flonase Miguel Spr) 2 spray DAILY EACH NARE ; Start at 09:00 Levothyroxine Sodium (Synthroid) 75 mcg DAILY PO ; Start 11/30/16 at 09:00 Non-Formulary Medication 1 drop DAILY EACH EYE ; Start 11/30/16 at 09:00; Status UNV Dopamine HCl/ Dextrose 500 ml @ 9.9 mls/hr TITRATE PRN IV Blood Pressure Management; Start 11/29/16 at 12:45 Terbutaline Sulfate (Brethine Inj) 1 mg UNSCH PRN SQ For Extravasation; Start 11/29/16 at 12:45 Lidocaine HCl (Xylocaine 2% Inj) 50 ml STK-MED ONCE .ROUTE Last administered on 11/29/16t 13:20; Start 11/29/16 at 13:20; Stop 11/29/16 at 13:21; Status DC Vancomycin HCl (Vancomycin Inj) 500 mg STK-MED ONCE .ROUTE Last administered on 11/29/16 13:20; Start 11/29/16 at 13:20; Stop 11/29/16 at 13:21; Status DC Vancomycin HCl (Vancomycin Inj) 1,000 mg STK-MED ONCE .ROUTE Last administered on 11/29/16 13:35; Start 11/29/16 at 13:20; Stop 11/29/16 at 13:21; Status DC Cefazolin Sodium (Ancef Inj) 2,000 mg STK-MED ONCE .ROUTE ; Start 11/29/16 at 13:20; Stop 11/29/16 at 13:21; Status DC Heparin Sodium/ Sodium Chloride 1,000 ml @ As Directed STK-MED ONCE .ROUTE Last administered on 11/29/16 13:22; Start 11/29/16 at 13:22; Stop 11/29/16 at 13:23; Status DC Midazolam HCl (Versed Inj) 2 mg STK-MED ONCE .ROUTE ; Start 11/29/16 at 13:29; Stop 11/29/16 at 13:30; Status DC Terbutaline Sulfate (Brethine Inj) 1 mg NOW ONCE .XX ; Start 11/29/16 at 14:00 ; Stop 11/29/16 at 14:01; Status DC Vancomycin HCl 1000 mg/Sodium Chloride 250 ml @ 250 mls/hr ONCE ONCE IV Last administered on 11/30/16 01:00; Start 11/30/16 at 01:00; Stop 11/30/16 at 01 :59; Status DC Zolpidem Tartrate (Ambien) 5 mg HS PRN PO SLEEP Last administered on 01:31; Start 11/29/16 at 15:30 Ondansetron HCl (Zofran Inj) 4 mg Q4H PRN IV PUSH NAUSEA; Start 11/29/16 at 15 :30 Bacitracin (Bacitracin Oint Packet) 0.9 gm UNSCH PRN TOP SEE LABEL COMMENTS; Start 11/29/16 at 15:30 Meperidine HCl (Demerol Inj) 12.5 mg Q6H PRN IV PUSH shivering; Start at 16:45 Meperidine HCl (Demerol Inj) 12.5 mg ONCE ONCE IV Last administered on 17:00; Start 11/29/16 at 17:00; Stop 11/29/16 at 17:01; Status DC A/P Problem List: (1) Complete heart block ICD Code: I44.2 - Atrioventricular block, complete Status: Acute (2) Symptomatic bradycardia ICD Code: R00.1 - Bradycardia, unspecified Status: Resolved (3) Hypothyroidism ICD Code: E03.9 - Hypothyroidism Status: Chronic (4) Hypertension ICD Code: I10 - Hypertension Status: Acute (5) Peripheral neuropathy ICD Code: G62.9 - Peripheral neuropathy Status: Acute (6) Hyperlipidemia ICD Code: E78.5 - Hyperlipidemia Status: Acute (7) GERD (gastroesophageal reflux disease) ICD Code: K21.9 - GERD (gastroesophageal reflux disease) Status: Acute Assessment and Plan A/P Complete heart block History of hypertension Dyslipidemia - Symptomatic complete heart block. s/p pacemaker insertion. - Continue home aspirin GERD - on famotidine acute kidney injury improved. Discharge Planning dc home when ok with cardiology. see med list. f/u; pcp and cardiology. HHC was offered but the patient said that her daughter would stay with her. d/w the patient and RN. Problem Qualifiers (1) Hypothyroidism: Qualified Codes: E03.9 - Hypothyroidism, unspecified Roopa Baker MD Nov 30, 2016 09:35
--- NOTE | 2016-11-30 09:37 | HHI.DS ---
Discharge Summary Admission Date Nov 29, 2016 at 11:58 Discharge Date: Nov 30, 2016 Admitting Diagnosis complete heart block (1) Complete heart block ICD Code: I44.2 - Atrioventricular block, complete Diagnosis: Principal Status: Acute (2) Symptomatic bradycardia ICD Code: R00.1 - Bradycardia, unspecified Diagnosis: Principal Status: Resolved (3) Hypothyroidism ICD Code: E03.9 - Hypothyroidism Diagnosis: Principal Status: Chronic (4) Hypertension ICD Code: I10 - Hypertension Diagnosis: Secondary Status: Acute (5) Peripheral neuropathy ICD Code: G62.9 - Peripheral neuropathy Diagnosis: Secondary Status: Acute (6) Hyperlipidemia ICD Code: E78.5 - Hyperlipidemia Diagnosis: Secondary Status: Acute (7) GERD (gastroesophageal reflux disease) ICD Code: K21.9 - GERD (gastroesophageal reflux disease) Diagnosis: Secondary Status: Acute Procedures pacemaker insertion. Brief History - From Admission 81-year-old female with past medical history with history of hypothyroidism, hypertension, dyslipidemia presented with complains of bradycardia. Patient has been seen by Dr. Aquino in the office and was sent to ED for evaluation, as the HR was in low 30s. Blood pressure for EMS was in the 80s and patient was given atropine 0.5 mg IV and transported to ED. Patient denied dizziness chest pain or shortness of breath. She has had similar episode of bradycardia in the past which self resolved. ED contacted Dr. Nelson who will place permanent pacemaker today I evaluated the patient in the ED. She is feeling better. HR 25-30. I have started patient on Dopamine gtt to keep HR >35. Patient is agreeable for permanent pacemaker. She is complaint with levothyroxine, and TSH was normal. CBC/BMP: 11/30/16 0450 11/30/16 0450 Significant Findings Laboratory Tests Test 11/29/16 09:55 11/29/16 12:55 11/29/16 20:19 11/30/16 04:50 Monocytes (%) (Auto) 9.3 % (0.0-8.0) 8.7 % (0.0-8.0) Blood Urea Nitrogen 33 MG/DL (7-18) 24 MG/DL (7-18) Creatinine 1.79 MG/DL (0.50-1.00) Random Glucose 107 MG/DL (74-106) Magnesium Level 2.7 MG/DL (1.5-2.5) Chloride Level 109 MEQ/L (98-107) 115 MEQ/L (98-107) Estimat Glomerular Filtration Rate 27 ML/MIN (>89) 58 ML/MIN (>89) Troponin I LESS THAN 0.02 NG/ML LESS THAN 0.02 NG/ML 0.31 NG/ML (0.02-0.05) Red Blood Count 3.51 MIL/MM3 (4.00-5.30) Hemoglobin 11.5 GM/DL (11.6-15.3) Hematocrit 33.9 % (35.0-46.0) Platelet Count 149 TH/MM3 (150-450) Total Protein 5.8 GM/DL (6.4-8.2) Albumin 2.8 GM/DL (3.4-5.0) Calcium Level 7.9 MG/DL (8.5-10.1) Aspartate Amino Transf (AST/SGOT) 14 U/L (15-37) Imaging Last Impressions Chest X-Ray 11/29/16 0948 Signed Impressions: Service Date/Time: Tuesday, November 29, 2016 10:19 - CONCLUSION: No acute disease. No significant change has occurred. Jesus De Souza MD PE at Discharge GENERAL: This is a well-nourished, well-developed patient, in no apparent distress. CARDIOVASCULAR: Regular rate and regular rhythm without murmurs, gallops, or rubs. RESPIRATORY: Clear to auscultation. Breath sounds equal bilaterally. No wheezes , rales, or rhonchi. GASTROINTESTINAL: Abdomen soft, non-tender, nondistended. Normal, active bowel sounds MUSCULOSKELETAL: Extremities without clubbing, cyanosis, or edema. NEURO: Alert & Oriented x4 to person, place, time, situation. Moves all ext x4 Hospital Course Complete heart block History of hypertension Dyslipidemia - Symptomatic complete heart block. s/p pacemaker insertion. - Continue home aspirin GERD - on famotidine acute kidney injury improved. Pt Condition on Discharge: Good Discharge Disposition: Discharge Home Discharge Time: <= 30 minutes Discharge Instructions DIET: Follow Instructions for: Heart Healthy Diet Activities you can perform: Regular-No Restrictions Follow up Referrals: Cardiology PCP Follow-up Continued Medications: Aspirin (Aspirin) 81 Mg Chew 81 MG CHEW DAILY, TAB 0 Refills Cyclosporine Opth 0.05% (Restasis Opth 0.05%) 0.05% Emul 1 DROP EACH EYE DAILY for Dry Eye, #1 BOX 0 Refills Ezetimibe (Ezetimibe) 10 Mg Tab 10 MG PO DAILY, #30 TAB 0 Refills Famotidine (Pepcid) Unknown Strength Tab Unknown Dose PO BID, #60 TAB 0 Refills Fexofenadine (Stacey Allergy) Unknown Strength Tab Unknown Dose PO BID for Allergy Management, #60 TAB 0 Refills Fluticasone Nasal [place] (Fluticasone Nasal [place]) 50 Mcg/Act Naspr 2 SPRAY EACH NARE DAILY, #1 BOTTLE Gabapentin (Gabapentin) 300 Mg Cap 300 MG PO TID, #90 CAP 0 Refills Levothyroxine (Levothyroxine) 75 Mcg Tab 75 MCG PO DAILY for Thyroid, #30 TAB 0 Refills Losartan (Cozaar) 25 Mg Tab 25 MG PO DAILY, #60 TAB Discontinued Medications: Meloxicam (Bulk) (Meloxicam) 1 Pow Roopa Cantu MD Nov 30, 2016 09:37
[2016-11-30 11:00] VITALS: BP 143/81; PULSE 91; RESP 18; TEMP 98.3; O2SAT 99
[2016-11-30] MEDS: ENOXAPARIN SODIUM 30 MG/0.3 ML SYRINGE SQ SCH (13:00)
[2016-11-30 15:00] VITALS: BP 156/82; PULSE 86; RESP 18; TEMP 98.4; O2SAT 99
--- NOTE | 2016-11-30 17:24 | EKG ---
Date Performed: 11/29/2016 Time Performed: 16:23:30 PTAGE: 81 years EKG: Sinus rhythm . Probably paced ventriclular rhythm Abnormal ECG PREVIOUS TRACING : 11/29/2016 09.40 Compared to prior tracing this probably paced rhythm is new DOCTOR: Rivka Nelson Interpretating Date/Time 11/30/2016 17:23:08
[2016-11-30] MEDS ORDERED: SODIUM CHLORID 0.9% 500 ML BAG OTHER ONE (18:29)
[2016-12-01] MEDS ORDERED: [UNRECOGNIZED DRUG - OTHER] EACH EYE SCH (09:00)
--- NOTE | 2016-12-02 09:40 | MB ---
cc: RIVKA NELSON MD,NICOLASA PHAM,EILEEN Price MD DATE OF CONSULTATION 11/29/16 REASON FOR CONSULTATION Complete heart block HISTORY OF PRESENT ILLNESS This is a very pleasant 81 year old white female well known to Dr. Aquino and Dr. Pham who was here in June for slow heart rate but was on Cardizem which was stopped and since then has done fairly well. She presented to the emergency room in complete heart block. The undersigned was called Stat. The patient was brought to the catheterization laboratory emergently and a temporary pacemaker placed. Risks of permanent pacemaker and temporary pacer were reviewed with the patient in great detail. She was agreeable to proceed. She understood the risks of detail, bleeding, pneumothorax, perforation, foreseen and unforeseen complications reviewed. Understood the complications. PAST MEDICAL HISTORY 1. Inappropriate sinus tachycardia 2. Cardiomyopathy 3. Anemia 4. Hypertensive heart disease 5. Hypothyroidism 6. Gastroesophageal reflux disease 7. Osteoarthritis 8. Left foot drop 9. Hypertension 10. Hypercholesterolemia 11. Deep venous thrombosis current off anticoagulation therapy. That was following hip surgery. 12. Obesity ALLERGIES Multiple, KEFLEX PENICILLIN AMOXICILLIN FLAGYL VICODIN PRAVASTATIN CELEBREX BUPROPION NYSTATIN - PRIMARILY NAUSEA AND VOMITING MEDICATIONS 1. Previously included Cardizem which was stopped in June. 2. Aspirin 3. Zetia 4. Levothyroxine 5. Gabapentin 6. Various multivitamins 7. Bumex. PAST SURGICAL HISTORY 1. Cataract surgery 2. Cholecystectomy 3. Right femur hip surgery 4. Left hip replacement 5. Hernia repair abdomen FAMILY HISTORY Noncontributory SOCIAL HISTORY Nonsmoker, nondrinker. No drugs REVIEW OF SYSTEMS pleasant lady, denies chest pain, shortness of breath, obese. Pulse 29, blood pressure 86/48. HEENT: No xanthelasma. Mouth shows no cyanosis or pallor. NECK: No jugular venous distention. HEART: Two heart sounds. No murmurs. CHEST: Clear. ABDOMEN: Soft. No hepatosplenomegaly. EXTREMITIES: Legs reveal no evidence of edema. NEUROLOGIC: Grossly intact. LABORATORY DATA White count 7.3, hemoglobin 13.9, platelet count 209,000. INR 1.0 Sodium 141, potassium 4.3, chloride 109, BUN 33, creatinine 1.79. Troponin less than 0.02. CARDIOLOGY STUDIES EKG showed a right bundle branch block with complete heart block at a rate of 29 beats per minute. ASSESSMENT AND PLAN 1. Emergency temporary pacemaker placement. Risks of this procedure include , bleeding, perforation ___ reviewed. The patient fully appeared to understand. 2. Permanent pacemaker implantation. This will be done shortly and emergently. We will continue to proceed as soon as possible. Rivka Nelson MD, FRCP,[facility]/ /2:14 PM /9:27 AM
== END 2016-11-30 18:30 | disposition home or self-care (01) | DRG 243 ==
LOC: NEPC 09:32 → NEDA 11:58 → HCVI 16:10
PROVIDERS: ADMIT Internal Medicine; ATTEND Internal Medicine
PROC: 02H63JZ Insertion of Pacemaker Lead into Right Atrium, Percutaneous Approach (ICD-10-PCS; 2016-11-29)
PROC: 02HK3JZ Insertion of Pacemaker Lead into Right Ventricle, Percutaneous Approach (ICD-10-PCS; 2016-11-29)
PROC: 0JH606Z Insertion of Pacemaker, Dual Chamber into Chest Subcutaneous Tissue and Fascia, Open Approach (ICD-10-PCS; principal; 2016-11-29 14:30)
DX: I44.2 Atrioventricular block, complete (principal); N17.9 Acute kidney failure, unspecified; I42.9 Cardiomyopathy, unspecified; G62.9 Polyneuropathy, unspecified; I11.9 Hypertensive heart disease without heart failure; E03.9 Hypothyroidism, unspecified; K21.9 Gastro-esophageal reflux disease without esophagitis; E78.5 Hyperlipidemia, unspecified; R00.1 Bradycardia, unspecified; Z88.1 Allergy status to other antibiotic agents; Z88.0 Allergy status to penicillin; Z88.8 Allergy status to other drugs, medicaments and biological substances; Z86.718 Personal history of other venous thrombosis and embolism
CPT/HCPCS: 33208; 71010; 80053; 82550; 83735; 84100; 84443; 84484; 85025; 85610; 85730; 93005; C1779; C1785; J0690; J1265; J1644; J1650; J2175; J2250; J3370; J7030; J7040; J7050

== ENCOUNTER → 2016-12-30 | Outpatient (CLI) | payer MEDICARE, BC ==
[~2016-12-30] MED LIST changes: +ASPI-516 CHEW; -ASPI1TAB69 PO; -MELO1POW14
[2016-12-30 11:05] LABS: BICARBONATE 25.2 MEQ/L (21.0-32.0); POTASSIUM 3.9 MEQ/L (3.5-5.1)
== END ==
LOC: PLAB 07:45
PROVIDERS: ATTEND Internal Medicine Interventional Cardiology
DX: I11.9 Hypertensive heart disease without heart failure (principal); I49.8 Other specified cardiac arrhythmias; I44.2 Atrioventricular block, complete; I49.5 Sick sinus syndrome
CPT/HCPCS: 36415; 80048

== ENCOUNTER → 2017-02-20 | Outpatient (CLI) | payer MEDICARE, BC ==
[2017-02-20 13:26] LABS: AUTOMATED NEUTROPHIL # 5.3 TH/MM3 (1.8-7.7); BASOPHIL # 0.1 TH/MM3 (0-0.2); BASOPHIL % 1.2 % (0.0-2.0); EOSINOPHIL # 0.1 TH/MM3 (0-0.4); EOSINOPHIL % 1.6 % (0.0-4.0); HEMATOCRIT 37.6 % (35.0-46.0); HEMOGLOBIN 12.6 GM/DL (11.6-15.3); LYMPH % 15.5 % (9.0-44.0); LYMPHOCYTE # 1.1 TH/MM3 (1.0-4.8); MEAN CELL VOLUME 95.1 FL (80.0-100.0); MEAN CORPUSCULAR HGB CONC 33.6 % (32.0-36.0); MEAN PLATELET VOLUME 8.1 FL (7.0-11.0); MONO % 6.8 % (0.0-8.0); MONOCYTE # 0.5 TH/MM3 (0-0.9); NEUT % 74.9 % (16.0-70.0); PLATELET COUNT 219 TH/MM3 (150-450); RED BLOOD COUNT 3.95 MIL/MM3 (4.00-5.30); RED CELL DISTRIBUTION WIDTH 13.4 % (11.6-17.2); WHITE BLOOD COUNT 7.1 TH/MM3 (4.0-11.0)
== END ==
LOC: PLAB 09:36
PROVIDERS: ATTEND Internal Medicine Interventional Cardiology
DX: R00.0 Tachycardia, unspecified (principal); Z79.899 Other long term (current) drug therapy
CPT/HCPCS: 36415; 85025

== ENCOUNTER → 2017-04-25 | Outpatient (CLI) | payer MEDICARE, BC ==
[2017-04-25 13:29] LABS: AUTOMATED NEUTROPHIL # 3.4 TH/MM3 (1.8-7.7); BASOPHIL # 0.1 TH/MM3 (0-0.2); BASOPHIL % 2.1 % (0.0-2.0); EOSINOPHIL # 0.3 TH/MM3 (0-0.4); EOSINOPHIL % 5.6 % (0.0-4.0); HEMATOCRIT 39.6 % (35.0-46.0); HEMOGLOBIN 13.3 GM/DL (11.6-15.3); LYMPH % 26.2 % (9.0-44.0); LYMPHOCYTE # 1.6 TH/MM3 (1.0-4.8); MEAN CELL VOLUME 95.6 FL (80.0-100.0); MEAN CORPUSCULAR HEMOGLOBIN 32.1 PG (27.0-34.0); MEAN CORPUSCULAR HGB CONC 33.6 % (32.0-36.0); MEAN PLATELET VOLUME 7.9 FL (7.0-11.0); MONO % 9.2 % (0.0-8.0); MONOCYTE # 0.6 TH/MM3 (0-0.9); NEUT % 56.9 % (16.0-70.0); PLATELET COUNT 206 TH/MM3 (150-450); RED BLOOD COUNT 4.15 MIL/MM3 (4.00-5.30); RED CELL DISTRIBUTION WIDTH 12.9 % (11.6-17.2)
[2017-04-25 13:45] LABS: ALBUMIN 3.7 GM/DL (3.4-5.0); AST (GOT) 14 U/L (15-37); BICARBONATE 27.1 MEQ/L (21.0-32.0); BLOOD UREA NITROGEN 15 MG/DL (7-18); CALCIUM 9.7 MG/DL (8.5-10.1); CHLORIDE 107 MEQ/L (98-107); CREATININE 0.91 MG/DL (0.50-1.00); GLOMERULAR FILTRATION RATE 59 ML/MIN (>89); GLUCOSE,FASTING 99 MG/DL (74-99); SODIUM (NA) 143 MEQ/L (136-145)
[2017-04-25 13:46] LABS: CHOLESTEROL 179 MG/DL (120-200)
[2017-04-25 13:55] LABS: ALKALINE PHOSPHATASE 68 U/L (45-117); ALT (GPT) 19 U/L (10-53); CHOLESTEROL/ HDL RATIO 2.96 RATIO; FREE T4 1.15 NG/DL (0.76-1.46); HDL CHOLESTEROL 60.3 MG/DL (40.0-60.0); LDL CHOLESTEROL 97 MG/DL (0-99); TOTAL BILIRUBIN ADULT 0.4 MG/DL (0.2-1.0); TOTAL PROTEIN 7.4 GM/DL (6.4-8.2); TRIGLYCERIDES 111 MG/DL (42-150)
[2017-04-25 16:54] LABS: HEMOGLOBIN A1C 5.2 % (4.3-6.0)
== END ==
LOC: PLAB 08:42
PROVIDERS: ATTEND Internal Medicine Interventional Cardiology
DX: E78.5 Hyperlipidemia, unspecified (principal); R00.2 Palpitations; I11.9 Hypertensive heart disease without heart failure; I44.2 Atrioventricular block, complete; R73.01 Impaired fasting glucose; E03.9 Hypothyroidism, unspecified
CPT/HCPCS: 36415; 80053; 80061; 83036; 84439; 84443; 85025